=== PATIENT | male | born 1990 | race Caucasian/White ===

== ENCOUNTER → 2016-08-01 | Outpatient (CLI) | payer OTHER ==
--- NOTE | 2016-08-02 15:27 | CR ---
EXAM DATE: 08/01/16 PATIENT'S AGE: 26 Patient: DONTE MONSON Facility: [place], [place] Site . Site : 1990 Study: XRay Extremity Right tib-fib [id number]/26/[id number] 3:42:50 PM Ordering Physician: Geno Ramos Final Report: HISTORY: Fracture, fall. Technique: Two views of the right tibia and fibula. Comparison: 07/10/2016. Findings: Mildly displaced fracture of the proximal fibular shaft is again noted. The fracture demonstrates a very slightly greater degree of displacement on the lateral film as compared to the prior examination. There is some callus formation about the fracture compatible with some healing response. There is no tibial fracture. No new fracture. Impression: Proximal fibular shaft fracture with a very slightly greater degree of displacement noted on the lateral film as compared to the prior examination. Dictated by Jeremy Armenta MD @ Aug 02 2016 2:52PM (Electronic Signature) Report Signed by Proxy. BARRY
== END ==
LOC: MW.CHFP 15:26
PROVIDERS: ATTEND Family Medicine
DX: S82.839D Other fracture of upper and lower end of unspecified fibula, subsequent encounter for closed fracture with routine healing (principal); W18.2XXS Fall in (into) shower or empty bathtub, sequela; S82.401D Unspecified fracture of shaft of right fibula, subsequent encounter for closed fracture with routine healing
CPT/HCPCS: 73590-26-RT; 73590-RT

== ENCOUNTER → 2016-08-22 | Outpatient (CLI) | payer OTHER ==
--- NOTE | 2016-08-23 09:08 | CR ---
EXAMINATION: Right tibia and fibula HISTORY: Fracture COMPARISON: 08/01/2016 TECHNIQUE: 2 views FINDINGS/IMPRESSION: There is a stable healing proximal fibular fracture identified, unchanged in po sition and alignment. Remaining osseous structures and joint spaces appear normal. Bone mineralizati on is normal.
== END ==
LOC: MW.CHORTHO 07:49
PROVIDERS: ATTEND Physician Assistant
DX: S82.839D Other fracture of upper and lower end of unspecified fibula, subsequent encounter for closed fracture with routine healing (principal); S82.491D Other fracture of shaft of right fibula, subsequent encounter for closed fracture with routine healing
CPT/HCPCS: 73590-26-RT; 73590-RT

== ENCOUNTER 2020-03-05 17:17 | Observation (INO) | payer SELFPAY ==
[2020-03-05] MEDS ORDERED: Piperacillin/Tazobactam 4.5 GM in Sodium Chloride 0.9% 100 ML IV ONE (18:32)
[2020-03-05] MEDS ORDERED: Morphine 4 MG/ML Syringe IM ONE (18:32)
[2020-03-05] MEDS ORDERED: Sodium Chloride 0.9% 2.5 ML Syringe FLUSH PRN (18:32)
[2020-03-05] MEDS ORDERED: Sodium Chloride 0.9% 10 ML Syringe FLUSH PRN (18:32)
[2020-03-05] MEDS ORDERED: Lactated Ringers 1,000 ML IV ONE ×2 (18:32→18:35)
--- NOTE | 2020-03-05 18:36 | EDM.PDOC ---
<ThibodeauxJuan Francisco - Last Filed: 03/05/20 21:47> ED HPI GENERAL MEDICAL PROBLEM - General Chief Complaint: Lower Extremity Injury/Pain Stated Complaint: POSSIBLE INFECTION Time Seen by Provider: 03/05/20 18:16 R thigh Pain Score (Numeric/FACES): 10 - Related Data Allergies Allergy/AdvReac Type Severity Reaction Status Date / Time No Known Allergies Allergy Verified 03/05/20 23:46 Home Meds: Home Meds . [No Known Home Meds] 12/04/14 [History] Past Medical History Respiratory History: Reports: Other (See Below) Other Respiratory History: Pleurisy and lung infections during childhood - Infectious Disease History Infectious Disease History: Reports: Chicken Pox - Past Surgical History Respiratory Surgical History: Reports: None Social & Family History - Family History Family Medical History: No Pertinent Family History Course - Vital Signs Text/Narrative:: The patient condition did not change. The patient has some drainage from the wound above the patella. The range of motion is still adequate and passive range of motion. Cussed with Dr. Guillory and placed in observation status so that he did not have to come back in tomorrow and get an IV and another dose of IV antibiotics on Saturday. Departure - Departure Time of Disposition: 21:48 Disposition: Refer to Observation Condition: Good Clinical Impression: Prepatellar bursitis, Cellulitis, Soft tissue infection - Discharge Information Sepsis Event Note (ED) - Evaluation Sepsis Screening Result: No Definite Risk <David Cameron - Last Filed: 03/06/20 09:50> ED HPI GENERAL MEDICAL PROBLEM - History of Present Illness INITIAL COMMENTS - FREE TEXT/NARRATIVE: CHIEF COMPLAINT(S): Right knee injury HISTORY OF PRESENT ILLNESS: This is a 29-year-old man without any past medical history who comes to the emergency department with a chief complaint of a right knee injury. The patient states that approximately 4 days ago he accidentally cut the top part of his right knee with a icebox man. He states that it was deep and went into the muscle. He states that at that time he was able to move his knee and was able to ambulate on it. He states that since that time he took amoxicillin that was at his house approximately 10 tabs and 3.5 g of amoxicillin that his friend gave him. He states that he was cleaning the area with warm water Placing Neosporin and a Band-Aid on it. He states that it was doing fine and it was draining white/bloody drainage. He states that last night it started to swell and then today started to experience redness all over his knee that spread over his knee within 3 to 4 hours. He states that he again tried to clean it. He states that he now is unable to bear weight on his right knee and that he is experiencing a significant amount of pain. REVIEW OF SYSTEMS: Constitutional: Denies fever, chills. Eyes: Denies eye pain Ears, Nose, Mouth, & Throat: Denies earache Cardiovascular: Denies chest pain Respiratory: Denies shortness of breath Gastrointestinal: Denies Nausea, vomiting, diarrhea, hematochezia. Genitourinary: Denies hematuria MSK: Positive for right knee pain, swelling, redness, puncture wound Neurological: Denies blurred vision Psychiatric: Denies depression PAST MEDICAL HISTORY: As per history of present illness and as reviewed below otherwise noncontributory. SURGICAL HISTORY: As per history of present illness and as reviewed below otherwise noncontributory. SOCIAL HISTORY: Positive for tobacco and marijuana. Denies alcohol or other illicit substances FAMILY HISTORY: As per history of present illness and as reviewed below otherwise noncontributory. EXAMINATION OF ORGAN SYSTEMS/BODY AREAS: Constitutional: Blood pressure was 120/73, heart rate 70, respiratory rate 18 with an oxygen saturation 98% on room air. Temperature 36.8 General: Young man who does not appear to be in acute distress Psychiatric: Appropriate mood and affect. Eyes: No scleral icterus or conjunctival erythema ENMT: Moist mucous membranes. No pharyngeal erythema Cardiovascular: Regular, rate, and rhythm. No gallops, murmurs, or rubs. Bilateral upper extremity and lower extremity pulses are symmetric and intact. No peripheral edema. Respiratory: Lungs clear to auscultation bilaterally. No wheezes, rales, or rhonchi. Gastrointestinal: Soft, non-tender, non-distended. Normoactive bowel sounds Genitourinary: No suprapubic tenderness Musculoskeletal: Decreased range of motion of the right knee. The right knee is held in flexion. There is significant swelling of the right knee with overlying cellulitis extending around the knee. There is no crepitus. Patient is unable to bear weight. Skin: As noted above Neurological: Alert, GCS 15 distal sensation intact MEDICAL DECISION MAKING AND COURSE IN THE ED WITH INTERPRETATION/REVIEW OF DIAGNOSTIC STUDIES: This is a 29-year-old man and without any significant past medical history who comes to the emergency department with right knee swelling and what appears to be cellulitis that spread over the last 3 to 4 hours. At this time I suspect the possibility of septic arthritis versus necrotizing fasciitis versus cellulitis. We will start the patient on Zosyn and vancomycin. We will provide the patient with 1.5 L of lactated Ringer's bolus. Will obtain CBC, CMP, lactic acid, coags, CRP. Will obtain a right knee x-ray. We will provide the patient with morphine for pain relief. The radiological images were viewed by myself along with reading the report from the radiologist. Right knee x-ray reveals anterior soft tissue swelling with focal soft tissue defect. No synovitis of fracture. There is no obvious free air. At the time of signout, the patient was pending laboratory analysis and final disposition. I do believe the patient will require admission. At this time I elected not to do a knee tap as there is overlying cellulitis. We did send off blood cultures. DISPOSITION: [facility] Dr. Thibodeaux pending further workup CONDITION: Serious PROCEDURES: None FINAL IMPRESSION(S)/DIAGNOSES: 1. Acute right lower extremity cellulitis 2. Acute right knee pain, suspect possible septic arthritis David Cameron M.D. rt knee Pain Score (Numeric/FACES): 10 Review of Systems - Review of Systems Review Of Systems: See Below ED EXAM, GENERAL - Physical Exam Exam: See Below Course - Vital Signs Last Recorded V/S: Last Vital Signs Temp 36.9 C 03/06/20 07:56 Pulse 70 03/06/20 07:56 Resp 18 03/06/20 07:56 BP 109/55 L 03/06/20 07:56 Pulse Ox 95 03/06/20 07:56 - Orders/Labs/Meds Orders: Active Orders 24 hr Category Date Time Status Cardiac Monitoring [RC] . DIRECTED Care 03/05/20 18:32 Active Pulse Oximetry [RC] ASDIRECTED Care 03/05/20 18:32 Active Vaccines to be Administered [RC] PER UNIT ROUTINE Care 03/05/20 19:14 Active CULTURE BLOOD [BC] Stat Lab 03/05/20 19:23 Received CULTURE BLOOD [BC] Stat Lab 03/05/20 19:33 Results Sodium Chloride 0.9% [Saline Flush] Med 03/05/20 18:32 Active 10 ml FLUSH ASDIRECTED PRN Sodium Chloride 0.9% [Saline Flush] Med 03/05/20 18:32 Active 2.5 ml FLUSH ASDIRECTED PRN Blood Culture x2 Reflex Set [OM.PC] Stat Oth 03/05/20 19:06 Ordered Saline Lock Insert [OM.PC] Stat Oth 03/05/20 18:32 Ordered Medication Orders Acetaminophen (Tylenol) 650 mg PO Q4H PRN PRN Reason: Pain (Mild 1-3)/fever Albuterol/Ipratropium (Duoneb 3.0-0.5 Mg/3 Ml) 3 ml NEB Q4HRRT PRN PRN Reason: Shortness Of Breath/wheezing Enoxaparin Sodium (Lovenox) 40 mg SUBCUT Q24H [facility] Last Admin: 03/05/20 22:48 Dose: Not Given Documented by: PRERNA Hydromorphone HCl (Dilaudid) 1 mg IVPUSH Q4H PRN PRN Reason: Pain Last Admin: 03/06/20 07:33 Dose: 1 mg Documented by: Admin: 03/06/20 03:17 Dose: 1 mg Documented by: ALICJA Lactated Ringer's (Ringers, Lactated) 1,000 mls @ 125 mls/hr IV ASDIRECTED [facility] Last Admin: 03/06/20 00:16 Dose: 125 mls/hr Documented by: ALICJA Vancomycin HCl 1 gm/ Sodium (Chloride) 250 mls @ 166 mls/hr IV Q8H [facility] Last Admin: 03/06/20 02:23 Dose: 166 mls/hr Documented by: ALICJA Piperacillin Sod/Tazobactam (Sod 4.5 gm/ Sodium Chloride) 100 mls @ 100 mls/hr IV Q8H [facility] Last Admin: 03/06/20 04:28 Dose: 100 mls/hr Documented by: ALICJA Nicotine (Habitrol) 14 mg TRDERM DAILY [facility] Last Admin: 03/06/20 02:25 Dose: 14 mg Documented by: ALICJA Ondansetron HCl (Zofran) 4 mg IVPUSH Q4H PRN PRN Reason: Nausea/Vomiting Sodium Chloride (Saline Flush) 10 ml FLUSH ASDIRECTED PRN PRN Reason: Keep Vein Open Last Admin: 03/05/20 19:37 Dose: 10 ml Documented by: PRERNA Sodium Chloride (Saline Flush) 2.5 ml FLUSH ASDIRECTED PRN PRN Reason: Keep Vein Open Last Admin: 03/05/20 19:37 Dose: 2.5 ml Documented by: PRERNA Vancomycin HCl (Pharmacy To Dose - Vancomycin) 1 dose .XX ASDIRECTED KP Labs: Laboratory Tests 03/05/20 03/05/20 03/05/20 Range/Units 19:10 19:10 19:10 WBC 11.43 H (4.0-11.0) K/uL RBC 4.61 (4.50-5.90) M/uL Hgb 14.2 (13.0-17.0) g/dL Hct 42.4 (38.0-50.0) % MCV 92.0 (80.0-98.0) fL MCH 30.8 (27.0-32.0) pg MCHC 33.5 (31.0-37.0) g/dL RDW Std Deviation 42.0 (28.0-62.0) fl RDW Coeff of Juan 12 (11.0-15.0) % Plt Count 223 (150-400) K/uL MPV 11.20 (7.40-12.00) fL Neut % (Auto) 68.3 (48.0-80.0) % Lymph % (Auto) 20.8 (16.0-40.0) % [place] % (Auto) 10.0 (0.0-15.0) % Eos % (Auto) 0.7 (0.0-7.0) % Baso % (Auto) 0.2 (0.0-1.5) % Neut # (Auto) 7.8 H (1.4-5.7) K/uL Lymph # (Auto) 2.4 (0.6-2.4) K/uL [place] # (Auto) 1.1 H (0.0-0.8) K/uL Eos # (Auto) 0.1 (0.0-0.7) K/uL Baso # (Auto) 0.0 (0.0-0.1) K/uL Nucleated RBC % 0.0 /100WBC Nucleated RBCs # 0 K/uL INR 1.20 APTT 29.6 (18.6-31.3) SEC Lactate (0.20-2.00) mmol/L Sodium 141 (136-148) mmol/L Potassium 3.5 (3.5-5.1) mmol/L Chloride 105 (98-107) mmol/L Carbon Dioxide 27.0 (21.0-32.0) mmol/L BUN 8 (7.0-18.0) mg/dL Creatinine 0.9 (0.8-1.3) mg/dL Est Cr Clr Drug Dosing 118.26 mL/min Estimated GFR (MDRD) > 60.0 ml/min Glucose 100 (74-106) mg/dL Calcium 8.2 L (8.5-10.1) mg/dL Total Bilirubin 0.5 (0.2-1.0) mg/dL AST 13 L (15-37) IU/L ALT 24 (14-63) IU/L Alkaline Phosphatase 103 (46-116) U/L C-Reactive Protein 3.20 H (0.00-0.90) mg/dL Total Protein 7.0 (6.4-8.2) g/dL Albumin 3.7 (3.4-5.0) g/dL Globulin 3.3 (2.6-4.0) g/dL Albumin/Globulin Ratio 1.1 (0.9-1.6) SARS-CoV-2 RNA (MC) (NEGATIVE) Blood Type Antibody Screen 03/05/20 03/05/20 03/05/20 Range/Units 19:10 19:33 19:51 WBC (4.0-11.0) K/uL RBC (4.50-5.90) M/uL Hgb (13.0-17.0) g/dL Hct (38.0-50.0) % MCV (80.0-98.0) fL MCH (27.0-32.0) pg MCHC (31.0-37.0) g/dL RDW Std Deviation (28.0-62.0) fl RDW Coeff of Juan (11.0-15.0) % Plt Count (150-400) K/uL MPV (7.40-12.00) fL Neut % (Auto) (48.0-80.0) % Lymph % (Auto) (16.0-40.0) % [place] % (Auto) (0.0-15.0) % Eos % (Auto) (0.0-7.0) % Baso % (Auto) (0.0-1.5) % Neut # (Auto) (1.4-5.7) K/uL Lymph # (Auto) (0.6-2.4) K/uL [place] # (Auto) (0.0-0.8) K/uL Eos # (Auto) (0.0-0.7) K/uL Baso # (Auto) (0.0-0.1) K/uL Nucleated RBC % /100WBC Nucleated RBCs # K/uL INR APTT (18.6-31.3) SEC Lactate 2.2 H* (0.20-2.00) mmol/L Sodium (136-148) mmol/L Potassium (3.5-5.1) mmol/L Chloride (98-107) mmol/L Carbon Dioxide (21.0-32.0) mmol/L BUN (7.0-18.0) mg/dL Creatinine (0.8-1.3) mg/dL Est Cr Clr Drug Dosing mL/min Estimated GFR (MDRD) ml/min Glucose (74-106) mg/dL Calcium (8.5-10.1) mg/dL Total Bilirubin (0.2-1.0) mg/dL AST (15-37) IU/L ALT (14-63) IU/L Alkaline Phosphatase (46-116) U/L C-Reactive Protein (0.00-0.90) mg/dL Total Protein (6.4-8.2) g/dL Albumin (3.4-5.0) g/dL Globulin (2.6-4.0) g/dL Albumin/Globulin Ratio (0.9-1.6) SARS-CoV-2 RNA (MC) NEGATIVE (NEGATIVE) Blood Type O NEGATIVE Antibody Screen NEGATIVE 03/05/20 Range/Units 21:33 WBC (4.0-11.0) K/uL RBC (4.50-5.90) M/uL Hgb (13.0-17.0) g/dL Hct (38.0-50.0) % MCV (80.0-98.0) fL MCH (27.0-32.0) pg MCHC (31.0-37.0) g/dL RDW Std Deviation (28.0-62.0) fl RDW Coeff of Juan (11.0-15.0) % Plt Count (150-400) K/uL MPV (7.40-12.00) fL Neut % (Auto) (48.0-80.0) % Lymph % (Auto) (16.0-40.0) % [place] % (Auto) (0.0-15.0) % Eos % (Auto) (0.0-7.0) % Baso % (Auto) (0.0-1.5) % Neut # (Auto) (1.4-5.7) K/uL Lymph # (Auto) (0.6-2.4) K/uL [place] # (Auto) (0.0-0.8) K/uL Eos # (Auto) (0.0-0.7) K/uL Baso # (Auto) (0.0-0.1) K/uL Nucleated RBC % /100WBC Nucleated RBCs # K/uL INR APTT (18.6-31.3) SEC Lactate 1.2 (0.20-2.00) mmol/L Sodium (136-148) mmol/L Potassium (3.5-5.1) mmol/L Chloride (98-107) mmol/L Carbon Dioxide (21.0-32.0) mmol/L BUN (7.0-18.0) mg/dL Creatinine (0.8-1.3) mg/dL Est Cr Clr Drug Dosing mL/min Estimated GFR (MDRD) ml/min Glucose (74-106) mg/dL Calcium (8.5-10.1) mg/dL Total Bilirubin (0.2-1.0) mg/dL AST (15-37) IU/L ALT (14-63) IU/L Alkaline Phosphatase (46-116) U/L C-Reactive Protein (0.00-0.90) mg/dL Total Protein (6.4-8.2) g/dL Albumin (3.4-5.0) g/dL Globulin (2.6-4.0) g/dL Albumin/Globulin Ratio (0.9-1.6) SARS-CoV-2 RNA (MC) (NEGATIVE) Blood Type Antibody Screen Meds: Medications Generic Name Dose Route Start Last Admin Trade Name Freq PRN Reason Stop Dose Admin Acetaminophen 650 mg 03/05/20 22:08 Tylenol PO Q4H PRN Pain (Mild 1-3)/fever Albuterol/Ipratropium 3 ml 03/05/20 22:08 Duoneb 3.0-0.5 Mg/3 Ml NEB Q4HRRT PRN Shortness Of Breath/wheezing Enoxaparin Sodium 40 mg 03/05/20 22:15 03/05/20 22:48 Lovenox SUBCUT Not Given Q24H KP Hydromorphone HCl 1 mg 03/06/20 01:46 03/06/20 07:33 Dilaudid IVPUSH 1 mg Q4H PRN Administration Pain Lactated Ringer's 1,000 mls @ 125 mls/hr 03/05/20 22:15 03/06/20 00:16 Ringers, Lactated IV 125 mls/hr ASDIRECTED KP Administration Vancomycin HCl 1 gm/ Sodium 250 mls @ 166 mls/hr 03/06/20 03:00 03/06/20 02:23 Chloride IV 166 mls/hr Q8H KP Administration Piperacillin Sod/Tazobactam 100 mls @ 100 mls/hr 03/06/20 04:00 03/06/20 04:28 Sod 4.5 gm/ Sodium Chloride IV 100 mls/hr Q8H KP Administration Nicotine 14 mg 03/06/20 02:00 03/06/20 02:25 Habitrol TRDERM 14 mg DAILY KP Administration Ondansetron HCl 4 mg 03/05/20 22:08 Zofran IVPUSH Q4H PRN Nausea/Vomiting Sodium Chloride 10 ml 03/05/20 18:32 03/05/20 19:37 Saline Flush FLUSH 10 ml ASDIRECTED PRN Administration Keep Vein Open Sodium Chloride 2.5 ml 03/05/20 18:32 03/05/20 19:37 Saline Flush FLUSH 2.5 ml ASDIRECTED PRN Administration Keep Vein Open Vancomycin HCl 1 dose 03/05/20 22:45 Pharmacy To Dose - Vancomycin .XX ASDIRECTED KP Discontinued Medications Generic Name Dose Route Start Last Admin Trade Name Geovany PRN Reason Stop Dose Admin Hydrocodone Bitart/Acetaminophen 1 tab 03/05/20 21:42 03/05/20 21:47 [place] 325-10 Mg PO 03/05/20 21:43 1 tab ONETIME ONE Administration Diphtheria/Tetanus/Acell Pertussis 0.5 ml 03/05/20 19:13 03/05/20 19:35 Boostrix IM 03/05/20 19:14 0.5 ml .ONCE ONE Administration Diphtheria/Tetanus/Acell Pertussis Confirm 03/05/20 19:33 03/05/20 21:26 Adacel Administered 03/05/20 19:34 Not Given Dose 0.5 ml .ROUTE .STK-MED ONE Lactated Ringer's 1,000 mls @ 999 mls/hr 03/05/20 18:32 03/05/20 19:18 Ringers, Lactated IV 03/05/20 19:32 999 mls/hr .BOLUS ONE Administration Vancomycin HCl 1,500 mg/ 100 mls @ 100 mls/hr 03/05/20 18:32 03/05/20 19:34 Sodium Chloride IV 03/05/20 19:31 100 mls/hr ONETIME ONE Administration Piperacillin Sod/Tazobactam 100 mls @ 100 mls/hr 03/05/20 18:32 03/05/20 19:18 Sod 4.5 gm/ Sodium Chloride IV 03/05/20 19:31 100 mls/hr ONETIME ONE Administration Lactated Ringer's 1,000 mls @ 500 mls/hr 03/05/20 18:35 03/05/20 19:37 Ringers, Lactated IV 03/05/20 20:34 500 mls/hr .BOLUS ONE Administration Piperacillin Sod/Tazobactam 100 mls @ 100 mls/hr 03/06/20 03:00 Sod 4.5 gm/ Sodium Chloride IV Q8H [facility] Morphine Sulfate 4 mg 03/05/20 18:32 03/05/20 19:16 Morphine IM 03/05/20 18:33 4 mg ONETIME ONE Administration Morphine Sulfate 2 mg 03/05/20 22:08 03/06/20 00:11 Morphine IVPUSH 03/06/20 22:13 2 mg Q4H PRN Administration Pain (severe 7-10) - My Orders Last 24 Hours: My Active Orders 03/05/20 18:32 Cardiac Monitoring [RC] . DIRECTED Pulse Oximetry [RC] ASDIRECTED Sodium Chloride 0.9% [Saline Flush] 10 ml FLUSH ASDIRECTED PRN Sodium Chloride 0.9% [Saline Flush] 2.5 ml FLUSH ASDIRECTED PRN Saline Lock Insert [OM.PC] Stat 03/05/20 19:14 Vaccines to be Administered [RC] PER UNIT ROUTINE - Assessment/Plan Last 24 Hours: My Active Orders 03/05/20 18:32 Cardiac Monitoring [RC] . DIRECTED Pulse Oximetry [RC] ASDIRECTED Sodium Chloride 0.9% [Saline Flush] 10 ml FLUSH ASDIRECTED PRN Sodium Chloride 0.9% [Saline Flush] 2.5 ml FLUSH ASDIRECTED PRN Saline Lock Insert [OM.PC] Stat 03/05/20 19:14 Vaccines to be Administered [RC] PER UNIT ROUTINE
--- NOTE | 2020-03-05 19:11 | CR ---
Indication: Pt w/rt knee infection and injury Technique: Right knee 3 views Comparison: None Findings: Soft tissue swelling is present anterior to the quadriceps tendon and patella. Focal soft tissue defect on the lateral view above the patella. No large joint effusion or fracture. Alignment. Joint spaces maintained. Impression: Anterior soft tissue swelling with focal soft tissue defect. No synovitis or fracture. Dictated by Jayson Coon MD @ Mar 05 2020 7:10PM Signed by Dr. Jayson Coon @ Mar 05 2020 7:11PM
[2020-03-05] MEDS ORDERED: Diphtheria,Pertussis(Acell),Tetanus Vaccine 0.5 ML Syringe IM ONE (19:13)
[2020-03-05] MEDS ORDERED: Diphtheria,Pertussis(Acell),Tetanus Vaccine 0.5 ML Syringe ONE (19:33)
[2020-03-05 19:39] LABS: BLOOD UREA NITROGEN,BUN 8 mg/dL (7.0-18.0); CHLORIDE,CL 105 mmol/L (98-107); GLUCOSE RANDOM 100 mg/dL (74-106); POTASSIUM,K 3.5 mmol/L (3.5-5.1); SODIUM,NA 141 mmol/L (136-148)
[2020-03-05] MEDS ORDERED: Acetaminophen/HYDROcodone 325-10 MG Tab PO ONE (21:42)
[2020-03-05] MEDS ORDERED: Albuterol/Ipratropium 3.0-0.5 MG/3 ML Neb Soln NEB PRN (22:08)
[2020-03-05] MEDS ORDERED: Ondansetron 4 MG/2 ML SDV IVPUSH PRN (22:08)
[2020-03-05] MEDS ORDERED: Acetaminophen 325 MG Tab PO PRN (22:08)
[2020-03-05] MEDS ORDERED: Morphine 10 MG/ML Syringe IVPUSH PRN (22:08)
[2020-03-05] MEDS: Enoxaparin 40 MG/0.4 ML Syringe SUBCUT SCH (22:48)
--- NOTE | 2020-03-05 22:49 | PCM.HP.2 ---
H&P History of Present Illness - General Date of Service: 03/06/20 Admit Problem/Dx: Admission Diagnosis/Problem Admission Diagnosis/Problem Cellulitis - History of Present Illness Initial Comments - Free Text/Narative: Patient is a 29-year-old man without any significant past medical history who comes to the emergency department with a chief complaint of a right knee injury. According to him, approximately 4 days ago he accidentally cut the top part of his right knee with a telephone coin box collector while he was trying to cut a rope too close to his knee. He states that it was deep and went into the muscle, he put some "glue" on it and Neosporin and a bandaged it, . He states that at that time he was able to move his knee and was able to ambulate on it. He states that since that time he took amoxicillin that was at his house approximately 10 tabs , 500 mg, he took it without prescription, and eventually ran out of it, he opened the dressing today to "dry the wound" and pressed it to get the serous fluid out, states he saw some "bubbling air" coming out as well. Since then he pain and swelling has gotten worse, redness all over his knee that spread over his knee within 3 to 4 hours and now is unable to bear weight on his right knee and that he is experiencing a significant amount of pain. CXR knee was done in ER, showed anterior soft tissue swelling, no air, abscess or osteomyelitis. Patients lactate was elevated, received IV fluids and IV antibiotics, f/u lactate resolved, and was admitted for father management. R thigh Pain Score (Numeric/FACES): 10 rt knee Pain Score (Numeric/FACES): 10 - Related Data Allergies/Adverse Reactions: Allergies Allergy/AdvReac Type Severity Reaction Status Date / Time No Known Allergies Allergy Verified 03/05/20 23:46 Home Medications: Home Meds . [No Known Home Meds] 12/04/14 [History] Past Medical History Respiratory History: Reports: Other (See Below) Other Respiratory History: Pleurisy and lung infections during childhood - Infectious Disease History Infectious Disease History: Reports: Chicken Pox - Past Surgical History Respiratory Surgical History: Reports: None Social & Family History - Family History Family Medical History: No Pertinent Family History - Tobacco Use Tobacco Use Status *Q: Current Every Day Tobacco User Years of Tobacco use: 20 Packs/Tins Daily: 1 - Caffeine Use Caffeine Use: Reports: None - Recreational Drug Use Recreational Drug Use: Yes Recreational Drug Type: Reports: Marijuana/Hashish Recreational Drug Use Frequency: Socially H&P Review of Systems - Review of Systems: Review Of Systems: See Below General: Denies: Fever, Malaise HEENT: Denies: Dysphasia, Ear Pain Pulmonary: Denies: Shortness of Breath, Wheezing Cardiovascular: Denies: Chest Pain, Palpitations, Dyspnea on Exertion Gastrointestinal: Denies: Abdominal Pain, Anorexia, Black Stool, Constipation, Diarrhea, Melena, Nausea Genitourinary: Denies: Dysuria, Frequency, Burning Musculoskeletal: Reports: Leg Pain, Joint Pain, Joint Swelling. Denies: Neck Pain, Shoulder Pain, Back Pain, Muscle Pain Skin: Reports: Erythema, Wound. Denies: Cyanosis, Jaundice, Mottled Psychiatric: Denies: Confusion, Depression, Mood Lability Neurological: Denies: Confusion, Dizziness, Headache Exam - Exam Exam: See Below - Vital Signs Vital Signs: Last Vital Signs Temp 36.4 C 03/05/20 21:38 Pulse 65 03/05/20 21:38 Resp 18 03/05/20 21:38 BP 111/76 03/05/20 21:38 Pulse Ox 95 03/05/20 21:38 Weight: 70.307 kg - Exam Quality Assessment: No: Supplemental Oxygen General: Alert, Oriented, Cooperative, Mild Distress Neck: Supple, Trachea Midline Lungs: Clear to Auscultation, Normal Respiratory Effort Cardiovascular: Regular Rate, Regular Rhythm, Normal S1, Normal S2 Extremities: Joint Swelling, Leg Pain, Limited Range of Motion, Redness - Patient Data Lab Results Last 24 hrs: Laboratory Results - last 24 hr 03/05/20 03/05/20 03/05/20 Range/Units 19:10 19:10 19:10 WBC 11.43 H (4.0-11.0) K/uL RBC 4.61 (4.50-5.90) M/uL Hgb 14.2 (13.0-17.0) g/dL Hct 42.4 (38.0-50.0) % MCV 92.0 (80.0-98.0) fL MCH 30.8 (27.0-32.0) pg MCHC 33.5 (31.0-37.0) g/dL RDW Std Deviation 42.0 (28.0-62.0) fl RDW Coeff of Juan 12 (11.0-15.0) % Plt Count 223 (150-400) K/uL MPV 11.20 (7.40-12.00) fL Neut % (Auto) 68.3 (48.0-80.0) % Lymph % (Auto) 20.8 (16.0-40.0) % [place] % (Auto) 10.0 (0.0-15.0) % Eos % (Auto) 0.7 (0.0-7.0) % Baso % (Auto) 0.2 (0.0-1.5) % Neut # (Auto) 7.8 H (1.4-5.7) K/uL Lymph # (Auto) 2.4 (0.6-2.4) K/uL [place] # (Auto) 1.1 H (0.0-0.8) K/uL Eos # (Auto) 0.1 (0.0-0.7) K/uL Baso # (Auto) 0.0 (0.0-0.1) K/uL Nucleated RBC % 0.0 /100WBC Nucleated RBCs # 0 K/uL INR 1.20 APTT 29.6 (18.6-31.3) SEC Lactate (0.20-2.00) mmol/L Sodium 141 (136-148) mmol/L Potassium 3.5 (3.5-5.1) mmol/L Chloride 105 (98-107) mmol/L Carbon Dioxide 27.0 (21.0-32.0) mmol/L BUN 8 (7.0-18.0) mg/dL Creatinine 0.9 (0.8-1.3) mg/dL Est Cr Clr Drug Dosing 118.26 mL/min Estimated GFR (MDRD) > 60.0 ml/min Glucose 100 (74-106) mg/dL Calcium 8.2 L (8.5-10.1) mg/dL Total Bilirubin 0.5 (0.2-1.0) mg/dL AST 13 L (15-37) IU/L ALT 24 (14-63) IU/L Alkaline Phosphatase 103 (46-116) U/L C-Reactive Protein 3.20 H (0.00-0.90) mg/dL Total Protein 7.0 (6.4-8.2) g/dL Albumin 3.7 (3.4-5.0) g/dL Globulin 3.3 (2.6-4.0) g/dL Albumin/Globulin Ratio 1.1 (0.9-1.6) SARS-CoV-2 RNA ([facility]) (NEGATIVE) Blood Type Antibody Screen 03/05/20 03/05/20 03/05/20 Range/Units 19:10 19:33 19:51 WBC (4.0-11.0) K/uL RBC (4.50-5.90) M/uL Hgb (13.0-17.0) g/dL Hct (38.0-50.0) % MCV (80.0-98.0) fL MCH (27.0-32.0) pg MCHC (31.0-37.0) g/dL RDW Std Deviation (28.0-62.0) fl RDW Coeff of Juan (11.0-15.0) % Plt Count (150-400) K/uL MPV (7.40-12.00) fL Neut % (Auto) (48.0-80.0) % Lymph % (Auto) (16.0-40.0) % [place] % (Auto) (0.0-15.0) % Eos % (Auto) (0.0-7.0) % Baso % (Auto) (0.0-1.5) % Neut # (Auto) (1.4-5.7) K/uL Lymph # (Auto) (0.6-2.4) K/uL [place] # (Auto) (0.0-0.8) K/uL Eos # (Auto) (0.0-0.7) K/uL Baso # (Auto) (0.0-0.1) K/uL Nucleated RBC % /100WBC Nucleated RBCs # K/uL INR APTT (18.6-31.3) SEC Lactate 2.2 H* (0.20-2.00) mmol/L Sodium (136-148) mmol/L Potassium (3.5-5.1) mmol/L Chloride (98-107) mmol/L Carbon Dioxide (21.0-32.0) mmol/L BUN (7.0-18.0) mg/dL Creatinine (0.8-1.3) mg/dL Est Cr Clr Drug Dosing mL/min Estimated GFR (MDRD) ml/min Glucose (74-106) mg/dL Calcium (8.5-10.1) mg/dL Total Bilirubin (0.2-1.0) mg/dL AST (15-37) IU/L ALT (14-63) IU/L Alkaline Phosphatase (46-116) U/L C-Reactive Protein (0.00-0.90) mg/dL Total Protein (6.4-8.2) g/dL Albumin (3.4-5.0) g/dL Globulin (2.6-4.0) g/dL Albumin/Globulin Ratio (0.9-1.6) SARS-CoV-2 RNA ([facility]) NEGATIVE (NEGATIVE) Blood Type O NEGATIVE Antibody Screen NEGATIVE 03/05/20 Range/Units 21:33 WBC (4.0-11.0) K/uL RBC (4.50-5.90) M/uL Hgb (13.0-17.0) g/dL Hct (38.0-50.0) % MCV (80.0-98.0) fL MCH (27.0-32.0) pg MCHC (31.0-37.0) g/dL RDW Std Deviation (28.0-62.0) fl RDW Coeff of Juan (11.0-15.0) % Plt Count (150-400) K/uL MPV (7.40-12.00) fL Neut % (Auto) (48.0-80.0) % Lymph % (Auto) (16.0-40.0) % [place] % (Auto) (0.0-15.0) % Eos % (Auto) (0.0-7.0) % Baso % (Auto) (0.0-1.5) % Neut # (Auto) (1.4-5.7) K/uL Lymph # (Auto) (0.6-2.4) K/uL [place] # (Auto) (0.0-0.8) K/uL Eos # (Auto) (0.0-0.7) K/uL Baso # (Auto) (0.0-0.1) K/uL Nucleated RBC % /100WBC Nucleated RBCs # K/uL INR APTT (18.6-31.3) SEC Lactate 1.2 (0.20-2.00) mmol/L Sodium (136-148) mmol/L Potassium (3.5-5.1) mmol/L Chloride (98-107) mmol/L Carbon Dioxide (21.0-32.0) mmol/L BUN (7.0-18.0) mg/dL Creatinine (0.8-1.3) mg/dL Est Cr Clr Drug Dosing mL/min Estimated GFR (MDRD) ml/min Glucose (74-106) mg/dL Calcium (8.5-10.1) mg/dL Total Bilirubin (0.2-1.0) mg/dL AST (15-37) IU/L ALT (14-63) IU/L Alkaline Phosphatase (46-116) U/L C-Reactive Protein (0.00-0.90) mg/dL Total Protein (6.4-8.2) g/dL Albumin (3.4-5.0) g/dL Globulin (2.6-4.0) g/dL Albumin/Globulin Ratio (0.9-1.6) SARS-CoV-2 RNA ([facility]) (NEGATIVE) Blood Type Antibody Screen Result Diagrams: 03/05/20 19:10 03/05/20 19:10 Yazan Results Last 24 hrs: Microbiology 03/05/20 19:33 Anaerobic Blood Culture - Final Blood - Venous - Lab Draw Sepsis Event Note - Evaluation Sepsis Screening Result: No Definite Risk - Focused Exam Vital Signs: Vital Signs Temp Pulse Resp BP Pulse Ox 03/05/20 21:38 36.4 C 65 18 111/76 95 03/05/20 19:48 36.8 C 73 18 117/63 96 03/05/20 18:11 36.8 C 70 18 120/73 98 - Problem List (1) Cellulitis SNOMED Code(s): 342267314 ICD Code: L03.90 - CELLULITIS, UNSPECIFIED Status: Acute Current Visit: Y es (2) Prepatellar bursitis SNOMED Code(s): 58386084 ICD Code: M70.40 - PREPATELLAR BURSITIS, UNSPECIFIED KNEE Status: Acute Current Visit: Yes (3) Soft tissue infection SNOMED Code(s): 87981874 ICD Code: L08.9 - LOCAL INFECTION OF THE SKIN AND SUBCUTANEOUS TISSUE, UNSP Status: Acute Current Visit: Yes Problem List Initiated/Reviewed/Updated: Yes Orders Last 24hrs: Active Orders 24 hr Category Date Time Status Admission Status [Patient Status] [ADT] Stat ADT 03/05/20 21:49 Active Ambulate [RC] ASDIRECTED Care 03/05/20 22:08 Ordered Antiembolic Devices [RC] PER UNIT ROUTINE Care 03/05/20 22:13 Ordered Cardiac Monitoring [RC] . DIRECTED Care 03/05/20 18:32 Active Oxygen Therapy [RC] PRN Care 03/05/20 22:08 Ordered Pulse Oximetry [RC] ASDIRECTED Care 03/05/20 18:32 Active RT Aerosol Therapy [RC] ASDIRECTED Care 03/05/20 22:26 Ordered VTE/DVT Education [RC] PER UNIT ROUTINE Care 03/05/20 22:08 Ordered Vaccines to be Administered [RC] PER UNIT ROUTINE Care 03/05/20 19:14 Active Vital Signs [RC] Q4H Care 03/05/20 22:08 Ordered Regular Diet [DIET] Diet 03/06/20 Breakfast Ordered CULTURE BLOOD [BC] Stat Lab 03/05/20 19:23 Received CULTURE BLOOD [BC] Stat Lab 03/05/20 19:33 Results CULTURE WOUND [RM] Stat Lab 03/05/20 22:36 Ordered VANCOMYCIN TROUGH [CHEM] Timed Lab 03/07/20 02:00 Ordered Acetaminophen [TylenoL] Med 03/05/20 22:08 Ordered 650 mg PO Q4H PRN Albuterol/Ipratropium [DuoNeb 3.0-0.5 MG/3 ML] Med 03/05/20 22:08 Ordered 3 ml NEB Q4HRRT PRN Enoxaparin [Lovenox] Med 03/05/20 22:15 Ordered 40 mg SUBCUT Q24H Lactated Ringers @ 125 MLS/HR(1000ml) Med 03/05/20 22:15 Ordered Lactated Ringers [Ringers, Lactated] 1,000 ml IV ASDIRECTED Morphine Med 03/05/20 22:08 Ordered 2 mg IVPUSH Q4H PRN Ondansetron [Zofran] Med 03/05/20 22:08 Ordered 4 mg IVPUSH Q4H PRN Pharmacy to Dose - Vancomycin Med 03/05/20 22:45 Ordered 1 dose .XX ASDIRECTED Piperacillin/Tazobactam [Piperacil-Tazobact] 4.5 gm Med 03/06/20 03:00 Ordered Sodium Chloride 0.9% [Normal Saline] 100 ml IV Q8H Sodium Chloride 0.9% [Saline Flush] Med 03/05/20 18:32 Active 10 ml FLUSH ASDIRECTED PRN Sodium Chloride 0.9% [Saline Flush] Med 03/05/20 18:32 Active 2.5 ml FLUSH ASDIRECTED PRN Vancomycin [Vancocin] 1 gm Med 03/06/20 03:00 Active Sodium Chloride 0.9% [Normal Saline (AdvBag)] 250 ml IV Q8H Blood Culture x2 Reflex Set [OM.PC] Stat Oth 03/05/20 19:06 Ordered Saline Lock Insert [OM.PC] Stat Oth 03/05/20 18:32 Ordered Sequential Compression Device [OM.PC] Per Unit Routine Oth 03/05/20 22:10 Ordered Resuscitation Status Routine Resus Stat 03/05/20 22:08 Ordered Medication Orders Acetaminophen (Tylenol) 650 mg PO Q4H PRN PRN Reason: Pain (Mild 1-3)/fever Albuterol/Ipratropium (Duoneb 3.0-0.5 Mg/3 Ml) 3 ml NEB Q4HRRT PRN PRN Reason: Shortness Of Breath/wheezing Enoxaparin Sodium (Lovenox) 40 mg SUBCUT Q24H KP Lactated Ringer's (Ringers, Lactated) 1,000 mls @ 125 mls/hr IV ASDIRECTED KP Piperacillin Sod/Tazobactam (Sod 4.5 gm/ Sodium Chloride) 100 mls @ 100 mls/hr IV Q8H KP Vancomycin HCl 1 gm/ Sodium (Chloride) 250 mls @ 166 mls/hr IV Q8H KP Morphine Sulfate (Morphine) 2 mg IVPUSH Q4H PRN PRN Reason: Pain (severe 7-10) Stop: 03/06/20 22:13 Ondansetron HCl (Zofran) 4 mg IVPUSH Q4H PRN PRN Reason: Nausea/Vomiting Sodium Chloride (Saline Flush) 10 ml FLUSH ASDIRECTED PRN PRN Reason: Keep Vein Open Last Admin: 03/05/20 19:37 Dose: 10 ml Documented by: PRERNA Sodium Chloride (Saline Flush) 2.5 ml FLUSH ASDIRECTED PRN PRN Reason: Keep Vein Open Last Admin: 03/05/20 19:37 Dose: 2.5 ml Documented by: PRERNA Vancomycin HCl (Pharmacy To Dose - Vancomycin) 1 dose .XX ASDIRECTED [facility] Assessment/Plan Comment:: 29 y/o M admitted for cellulitis of his right leg sec to wound CXR showed soft tissue selling, no air or abscess, no fluid collection, No fever, patient doesn't look toxic Pain is slightly better, redness has started to improve per patient start board spectrum antibiotics f/u on blood cultures send wound cultures check HbA1c Morphine for pain If pain gets worse will or minimal improvement will obtain CT of the knee
[2020-03-06] MEDS: Lactated Ringers 1,000 ML IV SCH ×2 (00:16→14:31)
[2020-03-06] MEDS: Nicotine 14 MG/24 Hr Patch TRDERM SCH ×2 (02:25→10:07)
[2020-03-06] MEDS ORDERED: Piperacillin/Tazobactam 4.5 GM in Sodium Chloride 0.9% 100 ML IV SCH (03:00)
[2020-03-06] MEDS: HYDROmorphone 1 MG/ML Syringe IVPUSH PRN ×5 (03:17→19:34)
[2020-03-06] MEDS: Piperacillin/Tazobactam 4.5 GM in Sodium Chloride 0.9% 100 ML IV SCH ×3 (04:28→21:58)
[2020-03-06 06:14] LABS: HEMOGLOBIN A1C 5.2 %
[2020-03-06 06:28] LABS: BLOOD UREA NITROGEN,BUN 8 mg/dL (7.0-18.0); CHLORIDE,CL 108 mmol/L (98-107); GLUCOSE RANDOM 111 mg/dL (74-106); POTASSIUM,K 3.9 mmol/L (3.5-5.1); SODIUM,NA 142 mmol/L (136-148)
--- NOTE | 2020-03-06 13:35 | PCM.PN ---
- General Info Date of Service: 03/06/20 Admission Dx/Problem (Free Text): Admission Diagnosis/Problem Admission Diagnosis/Problem Cellulitis Subjective Update: seen at bedside, pain and swelling has Improved, able to flex his knee more than yesterday - Review of Systems General: Denies: Fever, Weakness, Fatigue Pulmonary: Denies: Shortness of Breath, Pleuritic Chest Pain Cardiovascular: Denies: Chest Pain, Palpitations, Dyspnea on Exertion Gastrointestinal: Denies: Abdominal Pain, Constipation, Decreased Appetite Genitourinary: Denies: Dysuria, Frequency, Burning Musculoskeletal: Reports: Leg Pain, Joint Pain, Joint Swelling. Denies: Neck Pain, Shoulder Pain, Back Pain Skin: Reports: Other (wound, erythema). Denies: Cyanosis, Jaundice, Mottled - Patient Data Vitals - Most Recent: Last Vital Signs Temp 36.8 C 03/06/20 12:00 Pulse 65 03/06/20 12:00 Resp 14 03/06/20 12:00 BP 116/69 03/06/20 12:00 Pulse Ox 94 L 03/06/20 12:00 Weight - Most Recent: 70.76 kg I&O - Last 24 Hours: Intake & Output 03/05/20 03/06/20 03/06/20 22:59 06:59 14:59 Intake Total 1239 350 Output Total 450 Balance 789 350 Lab Results Last 24 Hours: Laboratory Results - last 24 hr 03/05/20 03/05/20 03/05/20 Range/Units 19:10 19:10 19:10 WBC 11.43 H (4.0-11.0) K/uL RBC 4.61 (4.50-5.90) M/uL Hgb 14.2 (13.0-17.0) g/dL Hct 42.4 (38.0-50.0) % MCV 92.0 (80.0-98.0) fL MCH 30.8 (27.0-32.0) pg MCHC 33.5 (31.0-37.0) g/dL RDW Std Deviation 42.0 (28.0-62.0) fl RDW Coeff of Juan 12 (11.0-15.0) % Plt Count 223 (150-400) K/uL MPV 11.20 (7.40-12.00) fL Neut % (Auto) 68.3 (48.0-80.0) % Lymph % (Auto) 20.8 (16.0-40.0) % [place] % (Auto) 10.0 (0.0-15.0) % Eos % (Auto) 0.7 (0.0-7.0) % Baso % (Auto) 0.2 (0.0-1.5) % Neut # (Auto) 7.8 H (1.4-5.7) K/uL Lymph # (Auto) 2.4 (0.6-2.4) K/uL [place] # (Auto) 1.1 H (0.0-0.8) K/uL Eos # (Auto) 0.1 (0.0-0.7) K/uL Baso # (Auto) 0.0 (0.0-0.1) K/uL Nucleated RBC % 0.0 /100WBC Nucleated RBCs # 0 K/uL INR 1.20 APTT 29.6 (18.6-31.3) SEC Lactate (0.20-2.00) mmol/L Sodium 141 (136-148) mmol/L Potassium 3.5 (3.5-5.1) mmol/L Chloride 105 (98-107) mmol/L Carbon Dioxide 27.0 (21.0-32.0) mmol/L BUN 8 (7.0-18.0) mg/dL Creatinine 0.9 (0.8-1.3) mg/dL Est Cr Clr Drug Dosing 118.26 mL/min Estimated GFR (MDRD) > 60.0 ml/min Glucose 100 (74-106) mg/dL Hemoglobin A1c (4.5 - 6.2) % Calcium 8.2 L (8.5-10.1) mg/dL Phosphorus (2.6-4.7) mg/dL Magnesium (1.8-2.4) mg/dL Total Bilirubin 0.5 (0.2-1.0) mg/dL AST 13 L (15-37) IU/L ALT 24 (14-63) IU/L Alkaline Phosphatase 103 (46-116) U/L C-Reactive Protein 3.20 H (0.00-0.90) mg/dL Total Protein 7.0 (6.4-8.2) g/dL Albumin 3.7 (3.4-5.0) g/dL Globulin 3.3 (2.6-4.0) g/dL Albumin/Globulin Ratio 1.1 (0.9-1.6) SARS-CoV-2 RNA ([facility]) (NEGATIVE) Blood Type Antibody Screen 03/05/20 03/05/20 03/05/20 Range/Units 19:10 19:33 19:51 WBC (4.0-11.0) K/uL RBC (4.50-5.90) M/uL Hgb (13.0-17.0) g/dL Hct (38.0-50.0) % MCV (80.0-98.0) fL MCH (27.0-32.0) pg MCHC (31.0-37.0) g/dL RDW Std Deviation (28.0-62.0) fl RDW Coeff of Juan (11.0-15.0) % Plt Count (150-400) K/uL MPV (7.40-12.00) fL Neut % (Auto) (48.0-80.0) % Lymph % (Auto) (16.0-40.0) % [place] % (Auto) (0.0-15.0) % Eos % (Auto) (0.0-7.0) % Baso % (Auto) (0.0-1.5) % Neut # (Auto) (1.4-5.7) K/uL Lymph # (Auto) (0.6-2.4) K/uL [place] # (Auto) (0.0-0.8) K/uL Eos # (Auto) (0.0-0.7) K/uL Baso # (Auto) (0.0-0.1) K/uL Nucleated RBC % /100WBC Nucleated RBCs # K/uL INR APTT (18.6-31.3) SEC Lactate 2.2 H* (0.20-2.00) mmol/L Sodium (136-148) mmol/L Potassium (3.5-5.1) mmol/L Chloride (98-107) mmol/L Carbon Dioxide (21.0-32.0) mmol/L BUN (7.0-18.0) mg/dL Creatinine (0.8-1.3) mg/dL Est Cr Clr Drug Dosing mL/min Estimated GFR (MDRD) ml/min Glucose (74-106) mg/dL Hemoglobin A1c (4.5 - 6.2) % Calcium (8.5-10.1) mg/dL Phosphorus (2.6-4.7) mg/dL Magnesium (1.8-2.4) mg/dL Total Bilirubin (0.2-1.0) mg/dL AST (15-37) IU/L ALT (14-63) IU/L Alkaline Phosphatase (46-116) U/L C-Reactive Protein (0.00-0.90) mg/dL Total Protein (6.4-8.2) g/dL Albumin (3.4-5.0) g/dL Globulin (2.6-4.0) g/dL Albumin/Globulin Ratio (0.9-1.6) SARS-CoV-2 RNA ([facility]) NEGATIVE (NEGATIVE) Blood Type O NEGATIVE Antibody Screen NEGATIVE 03/05/20 03/06/20 03/06/20 Range/Units 21:33 05:55 05:55 WBC 7.94 (4.0-11.0) K/uL RBC 3.97 L (4.50-5.90) M/uL Hgb 12.2 L (13.0-17.0) g/dL Hct 36.9 L (38.0-50.0) % MCV 92.9 (80.0-98.0) fL MCH 30.7 (27.0-32.0) pg MCHC 33.1 (31.0-37.0) g/dL RDW Std Deviation 42.3 (28.0-62.0) fl RDW Coeff of Juan 13 (11.0-15.0) % Plt Count 198 (150-400) K/uL MPV 11.10 (7.40-12.00) fL Neut % (Auto) 51.6 (48.0-80.0) % Lymph % (Auto) 35.0 (16.0-40.0) % [place] % (Auto) 11.1 (0.0-15.0) % Eos % (Auto) 2.0 (0.0-7.0) % Baso % (Auto) 0.3 (0.0-1.5) % Neut # (Auto) 4.1 (1.4-5.7) K/uL Lymph # (Auto) 2.8 H (0.6-2.4) K/uL [place] # (Auto) 0.9 H (0.0-0.8) K/uL Eos # (Auto) 0.2 (0.0-0.7) K/uL Baso # (Auto) 0.0 (0.0-0.1) K/uL Nucleated RBC % 0.0 /100WBC Nucleated RBCs # 0 K/uL INR APTT (18.6-31.3) SEC Lactate 1.2 (0.20-2.00) mmol/L Sodium 142 (136-148) mmol/L Potassium 3.9 (3.5-5.1) mmol/L Chloride 108 H (98-107) mmol/L Carbon Dioxide 29.0 (21.0-32.0) mmol/L BUN 8 (7.0-18.0) mg/dL Creatinine 0.9 (0.8-1.3) mg/dL Est Cr Clr Drug Dosing 119.03 mL/min Estimated GFR (MDRD) > 60.0 ml/min Glucose 111 H (74-106) mg/dL Hemoglobin A1c (4.5 - 6.2) % Calcium 8.0 L (8.5-10.1) mg/dL Phosphorus 3.7 (2.6-4.7) mg/dL Magnesium 1.8 (1.8-2.4) mg/dL Total Bilirubin (0.2-1.0) mg/dL AST (15-37) IU/L ALT (14-63) IU/L Alkaline Phosphatase (46-116) U/L C-Reactive Protein 5.20 H (0.00-0.90) mg/dL Total Protein (6.4-8.2) g/dL Albumin (3.4-5.0) g/dL Globulin (2.6-4.0) g/dL Albumin/Globulin Ratio (0.9-1.6) SARS-CoV-2 RNA ([facility]) (NEGATIVE) Blood Type Antibody Screen 03/06/20 Range/Units 05:55 WBC (4.0-11.0) K/uL RBC (4.50-5.90) M/uL Hgb (13.0-17.0) g/dL Hct (38.0-50.0) % MCV (80.0-98.0) fL MCH (27.0-32.0) pg MCHC (31.0-37.0) g/dL RDW Std Deviation (28.0-62.0) fl RDW Coeff of Juan (11.0-15.0) % Plt Count (150-400) K/uL MPV (7.40-12.00) fL Neut % (Auto) (48.0-80.0) % Lymph % (Auto) (16.0-40.0) % [place] % (Auto) (0.0-15.0) % Eos % (Auto) (0.0-7.0) % Baso % (Auto) (0.0-1.5) % Neut # (Auto) (1.4-5.7) K/uL Lymph # (Auto) (0.6-2.4) K/uL [place] # (Auto) (0.0-0.8) K/uL Eos # (Auto) (0.0-0.7) K/uL Baso # (Auto) (0.0-0.1) K/uL Nucleated RBC % /100WBC Nucleated RBCs # K/uL INR APTT (18.6-31.3) SEC Lactate (0.20-2.00) mmol/L Sodium (136-148) mmol/L Potassium (3.5-5.1) mmol/L Chloride (98-107) mmol/L Carbon Dioxide (21.0-32.0) mmol/L BUN (7.0-18.0) mg/dL Creatinine (0.8-1.3) mg/dL Est Cr Clr Drug Dosing mL/min Estimated GFR (MDRD) ml/min Glucose (74-106) mg/dL Hemoglobin A1c 5.2 (4.5 - 6.2) % Calcium (8.5-10.1) mg/dL Phosphorus (2.6-4.7) mg/dL Magnesium (1.8-2.4) mg/dL Total Bilirubin (0.2-1.0) mg/dL AST (15-37) IU/L ALT (14-63) IU/L Alkaline Phosphatase (46-116) U/L C-Reactive Protein (0.00-0.90) mg/dL Total Protein (6.4-8.2) g/dL Albumin (3.4-5.0) g/dL Globulin (2.6-4.0) g/dL Albumin/Globulin Ratio (0.9-1.6) SARS-CoV-2 RNA ([facility]) (NEGATIVE) Blood Type Antibody Screen [facility] Results Last 24 Hours: Microbiology 03/05/20 19:33 Anaerobic Blood Culture - Final Blood - Venous - Lab Draw Med Orders - Current: Current Medications Acetaminophen (Tylenol) 650 mg PO Q4H PRN PRN Reason: Pain (Mild 1-3)/fever Albuterol/Ipratropium (Duoneb 3.0-0.5 Mg/3 Ml) 3 ml NEB Q4HRRT PRN PRN Reason: Shortness Of Breath/wheezing Enoxaparin Sodium (Lovenox) 40 mg SUBCUT Q24H [facility] Last Admin: 03/05/20 22:48 Dose: Not Given Documented by: Hydromorphone HCl (Dilaudid) 1 mg IVPUSH Q4H PRN PRN Reason: Pain Last Admin: 03/06/20 11:36 Dose: 1 mg Documented by: Lactated Ringer's (Ringers, Lactated) 1,000 mls @ 125 mls/hr IV ASDIRECTED [facility] Last Admin: 03/06/20 00:16 Dose: 125 mls/hr Documented by: Vancomycin HCl 1 gm/ Sodium (Chloride) 250 mls @ 166 mls/hr IV Q8H [facility] Last Admin: 03/06/20 10:09 Dose: 166 mls/hr Documented by: Piperacillin Sod/Tazobactam (Sod 4.5 gm/ Sodium Chloride) 100 mls @ 100 mls/hr IV Q8H [facility] Last Admin: 03/06/20 12:15 Dose: 100 mls/hr Documented by: Nicotine (Habitrol) 14 mg TRDERM DAILY [facility] Last Admin: 03/06/20 10:07 Dose: 14 mg Documented by: Ondansetron HCl (Zofran) 4 mg IVPUSH Q4H PRN PRN Reason: Nausea/Vomiting Sodium Chloride (Saline Flush) 10 ml FLUSH ASDIRECTED PRN PRN Reason: Keep Vein Open Last Admin: 03/05/20 19:37 Dose: 10 ml Documented by: Sodium Chloride (Saline Flush) 2.5 ml FLUSH ASDIRECTED PRN PRN Reason: Keep Vein Open Last Admin: 03/05/20 19:37 Dose: 2.5 ml Documented by: Vancomycin HCl (Pharmacy To Dose - Vancomycin) 1 dose .XX ASDIRECTED [facility] Discontinued Medications Hydrocodone Bitart/Acetaminophen ([place] 325-10 Mg) 1 tab PO ONETIME ONE Stop: 03/05/20 21:43 Last Admin: 03/05/20 21:47 Dose: 1 tab Documented by: Diphtheria/Tetanus/Acell Pertussis (Boostrix) 0.5 ml IM .ONCE ONE Stop: 03/05/20 19:14 Last Admin: 03/05/20 19:35 Dose: 0.5 ml Documented by: Diphtheria/Tetanus/Acell Pertussis (Adacel) Confirm Administered Dose 0.5 ml .ROUTE .STK-MED ONE Stop: 03/05/20 19:34 Last Admin: 03/05/20 21:26 Dose: Not Given Documented by: Lactated Ringer's (Ringers, Lactated) 1,000 mls @ 999 mls/hr IV .BOLUS ONE Stop: 03/05/20 19:32 Last Admin: 03/05/20 19:18 Dose: 999 mls/hr Documented by: Vancomycin HCl 1,500 mg/ (Sodium Chloride) 100 mls @ 100 mls/hr IV ONETIME ONE Stop: 03/05/20 19:31 Last Admin: 03/05/20 19:34 Dose: 100 mls/hr Documented by: Piperacillin Sod/Tazobactam (Sod 4.5 gm/ Sodium Chloride) 100 mls @ 100 mls/hr IV ONETIME ONE Stop: 03/05/20 19:31 Last Admin: 03/05/20 19:18 Dose: 100 mls/hr Documented by: Lactated Ringer's (Ringers, Lactated) 1,000 mls @ 500 mls/hr IV .BOLUS ONE Stop: 03/05/20 20:34 Last Admin: 03/05/20 19:37 Dose: 500 mls/hr Documented by: Piperacillin Sod/Tazobactam (Sod 4.5 gm/ Sodium Chloride) 100 mls @ 100 mls/hr IV Q8H [facility] Morphine Sulfate (Morphine) 4 mg IM ONETIME ONE Stop: 03/05/20 18:33 Last Admin: 03/05/20 19:16 Dose: 4 mg Documented by: Morphine Sulfate (Morphine) 2 mg IVPUSH Q4H PRN PRN Reason: Pain (severe 7-10) Stop: 03/06/20 22:13 Last Admin: 03/06/20 00:11 Dose: 2 mg Documented by: - Exam Quality Assessment: No: Supplemental Oxygen General: Alert, Oriented, Cooperative, No Acute Distress Lungs: Clear to Auscultation, Normal Respiratory Effort Cardiovascular: Regular Rate, Regular Rhythm, No Murmurs GI/Abdominal Exam: Normal Bowel Sounds, Soft, Non-Tender Extremities: No Pedal Edema, Joint Swelling, Leg Pain, Limited Range of Motion, Increased Warmth, Redness Sepsis Event Note - Evaluation Sepsis Screening Result: No Definite Risk - Focused Exam Vital Signs: Vital Signs Temp Pulse Resp BP Pulse Ox 03/06/20 12:00 36.8 C 65 14 116/69 94 L 03/06/20 07:56 36.9 C 70 18 109/55 L 95 03/06/20 04:32 37.1 C 62 16 111/62 96 - Problem List & Annotations (1) Cellulitis SNOMED Code(s): 430390719 Code(s): L03.90 - CELLULITIS, UNSPECIFIED Status: Acute Current Visit: Yes (2) Prepatellar bursitis SNOMED Code(s): 45554074 Code(s): M70.40 - PREPATELLAR BURSITIS, UNSPECIFIED KNEE Status: Acute Current Visit: Yes (3) Soft tissue infection SNOMED Code(s): 04982364 Code(s): L08.9 - LOCAL INFECTION OF THE SKIN AND SUBCUTANEOUS TISSUE, UNSP Status: Acute Current Visit: Yes - Problem List Review Problem List Initiated/Reviewed/Updated: Yes - My Orders Last 24 Hours: My Active Orders 03/05/20 22:08 Ambulate [RC] ASDIRECTED Oxygen Therapy [RC] PRN VTE/DVT Education [RC] PER UNIT ROUTINE Vital Signs [RC] Q4H Acetaminophen [TylenoL] 650 mg PO Q4H PRN Albuterol/Ipratropium [DuoNeb 3.0-0.5 MG/3 ML] 3 ml NEB Q4HRRT PRN Ondansetron [Zofran] 4 mg IVPUSH Q4H PRN Resuscitation Status Routine 03/05/20 22:10 Sequential Compression Device [OM.PC] Per Unit Routine 03/05/20 22:13 Antiembolic Devices [RC] PER UNIT ROUTINE 03/05/20 22:15 Enoxaparin [Lovenox] 40 mg SUBCUT Q24H Lactated Ringers [Ringers, Lactated] 1,000 ml IV ASDIRECTED 03/05/20 22:26 RT Aerosol Therapy [RC] ASDIRECTED 03/05/20 22:36 CULTURE WOUND [RM] Stat 03/05/20 22:45 Pharmacy to Dose - Vancomycin 1 dose .XX ASDIRECTED 03/06/20 01:46 HYDROmorphone [Dilaudid] 1 mg IVPUSH Q4H PRN 03/06/20 02:00 Nicotine [Habitrol] 14 mg TRDERM DAILY 03/06/20 03:00 Vancomycin [Vancocin] 1 gm Sodium Chloride 0.9% [Normal Saline (AdvBag)] 250 ml IV Q8H 03/06/20 04:00 Piperacillin/Tazobactam [Piperacil-Tazobact] 4.5 gm Sodium Chloride 0.9% [Normal Saline] 100 ml IV Q8H 03/06/20 Breakfast Regular Diet [DIET] - Plan Plan:: 29 y/o M admitted for cellulitis of his right leg sec to wound CXR showed soft tissue selling, no air or abscess, no fluid collection, No fever, patient doesn't look toxic Pain feels much better, redness and pressure/pain has started to improve per patient cont board spectrum antibiotics f/u on blood cultures send wound cultures check HbA1c Dilaudid for pain If pain gets worse will obtain CT of the knee
[2020-03-06] MEDS: Enoxaparin 40 MG/0.4 ML Syringe SUBCUT SCH ×2 (21:58→22:03)
[2020-03-07] MEDS: HYDROmorphone 1 MG/ML Syringe IVPUSH PRN ×5 (00:04→22:39)
[2020-03-07] MEDS: Lactated Ringers 1,000 ML IV SCH ×2 (00:04→13:53)
[2020-03-07 02:33] LABS: BLOOD UREA NITROGEN,BUN 7 mg/dL (7.0-18.0); CARBON DIOXIDE,CO2 29.4 mmol/L (21.0-32.0); CHLORIDE,CL 108 mmol/L (98-107); GLUCOSE RANDOM 108 mg/dL (74-106); POTASSIUM,K 3.9 mmol/L (3.5-5.1); SODIUM,NA 142 mmol/L (136-148)
[2020-03-07] MEDS: Piperacillin/Tazobactam 4.5 GM in Sodium Chloride 0.9% 100 ML IV SCH ×3 (04:52→21:13)
[2020-03-07] MEDS: Nicotine 14 MG/24 Hr Patch TRDERM SCH (10:00)
--- NOTE | 2020-03-07 12:01 | PCM.PN ---
- General Info Date of Service: 03/07/20 Admission Dx/Problem (Free Text): Admission Diagnosis/Problem Admission Diagnosis/Problem Cellulitis Subjective Update: Reports having continued knee pain. Continues to be able to flex and extend but having some pain above the kneecap. No drainage. Reports redness is increased slightly. No fevers or chills and is overall feeling somewhat better. - Review of Systems General: Reports: No Symptoms. Denies: Fever, Weakness, Fatigue, Malaise HEENT: Reports: No Symptoms. Denies: Headaches, Visual Changes Pulmonary: Reports: No Symptoms. Denies: Shortness of Breath Cardiovascular: Reports: No Symptoms. Denies: Chest Pain Gastrointestinal: Reports: No Symptoms. Denies: Abdominal Pain, Nausea, Vomiting Musculoskeletal: Reports: Leg Pain (Right thigh and knee) Neurological: Reports: No Symptoms Psychiatric: Reports: No Symptoms - Patient Data Vitals - Most Recent: Last Vital Signs Temp 96.0 F L 03/07/20 11:24 Pulse 62 03/07/20 11:24 Resp 22 H 03/07/20 11:24 BP 103/52 L 03/07/20 11:24 Pulse Ox 95 03/07/20 11:24 Weight - Most Recent: 70.76 kg I&O - Last 24 Hours: Intake & Output 03/06/20 03/07/20 03/07/20 22:59 06:59 14:59 Intake Total 0288 778 8647 Output Total 1800 1500 Balance -470 -750 1450 Lab Results Last 24 Hours: Laboratory Results - last 24 hr 03/07/20 03/07/20 03/07/20 Range/Units 02:00 02:00 02:00 WBC 8.65 (4.0-11.0) K/uL RBC 4.23 L (4.50-5.90) M/uL Hgb 12.8 L (13.0-17.0) g/dL Hct 39.3 (38.0-50.0) % MCV 92.9 (80.0-98.0) fL MCH 30.3 (27.0-32.0) pg MCHC 32.6 (31.0-37.0) g/dL RDW Std Deviation 42.3 (28.0-62.0) fl RDW Coeff of Juan 12 (11.0-15.0) % Plt Count 198 (150-400) K/uL MPV 11.00 (7.40-12.00) fL Neut % (Auto) 51.4 (48.0-80.0) % Lymph % (Auto) 36.5 (16.0-40.0) % [place] % (Auto) 8.6 (0.0-15.0) % Eos % (Auto) 3.0 (0.0-7.0) % Baso % (Auto) 0.5 (0.0-1.5) % Neut # (Auto) 4.5 (1.4-5.7) K/uL Lymph # (Auto) 3.2 H (0.6-2.4) K/uL [place] # (Auto) 0.7 (0.0-0.8) K/uL Eos # (Auto) 0.3 (0.0-0.7) K/uL Baso # (Auto) 0.0 (0.0-0.1) K/uL Nucleated RBC % 0.0 /100WBC Nucleated RBCs # 0 K/uL Sodium 142 (136-148) mmol/L Potassium 3.9 (3.5-5.1) mmol/L Chloride 108 H (98-107) mmol/L Carbon Dioxide 29.4 (21.0-32.0) mmol/L BUN 7 (7.0-18.0) mg/dL Creatinine 0.8 (0.8-1.3) mg/dL Est Cr Clr Drug Dosing 133.90 mL/min Estimated GFR (MDRD) > 60.0 ml/min Glucose 108 H (74-106) mg/dL Calcium 8.3 L (8.5-10.1) mg/dL Phosphorus 4.4 (2.6-4.7) mg/dL Magnesium 1.8 (1.8-2.4) mg/dL Vancomycin Trough 8.1 (5.0-10.0) ug/mL [facility] Results Last 24 Hours: Microbiology 03/05/20 19:33 Aerobic Blood Culture - Preliminary Blood - Venous - Lab Draw NO GROWTH AFTER 1 DAY Anaerobic Blood Culture - Final 03/05/20 19:23 Aerobic Blood Culture - Preliminary Blood - Venous NO GROWTH AFTER 1 DAY Anaerobic Blood Culture - Preliminary NO GROWTH AFTER 1 DAY Med Orders - Current: Current Medications Acetaminophen (Tylenol) 650 mg PO Q4H PRN PRN Reason: Pain (Mild 1-3)/fever Albuterol/Ipratropium (Duoneb 3.0-0.5 Mg/3 Ml) 3 ml NEB Q4HRRT PRN PRN Reason: Shortness Of Breath/wheezing Enoxaparin Sodium (Lovenox) 40 mg SUBCUT Q24H [facility] Last Admin: 03/06/20 22:03 Dose: Not Given Documented by: Hydromorphone HCl (Dilaudid) 1 mg IVPUSH Q4H PRN PRN Reason: Pain Last Admin: 03/07/20 10:00 Dose: 1 mg Documented by: Lactated Ringer's (Ringers, Lactated) 1,000 mls @ 125 mls/hr IV ASDIRECTED [facility] Last Admin: 03/07/20 00:04 Dose: 125 mls/hr Documented by: Piperacillin Sod/Tazobactam (Sod 4.5 gm/ Sodium Chloride) 100 mls @ 100 mls/hr IV Q8H [facility] Last Admin: 03/07/20 04:52 Dose: 100 mls/hr Documented by: Vancomycin HCl 1.25 gm/ Sodium (Chloride) 250 mls @ 166.667 mls/hr IV Q8H [facility] Last Admin: 03/07/20 10:15 Dose: 166.667 mls/hr Documented by: Nicotine (Habitrol) 14 mg TRDERM DAILY [facility] Last Admin: 03/07/20 10:00 Dose: 14 mg Documented by: Ondansetron HCl (Zofran) 4 mg IVPUSH Q4H PRN PRN Reason: Nausea/Vomiting Oxycodone HCl (Oxycodone) 5 mg PO Q4H PRN PRN Reason: Pain Sodium Chloride (Saline Flush) 10 ml FLUSH ASDIRECTED PRN PRN Reason: Keep Vein Open Last Admin: 03/05/20 19:37 Dose: 10 ml Documented by: Sodium Chloride (Saline Flush) 2.5 ml FLUSH ASDIRECTED PRN PRN Reason: Keep Vein Open Last Admin: 03/05/20 19:37 Dose: 2.5 ml Documented by: Vancomycin HCl (Pharmacy To Dose - Vancomycin) 1 dose .XX ASDIRECTED [facility] Discontinued Medications Hydrocodone Bitart/Acetaminophen ([place] 325-10 Mg) 1 tab PO ONETIME ONE Stop: 03/05/20 21:43 Last Admin: 03/05/20 21:47 Dose: 1 tab Documented by: Diphtheria/Tetanus/Acell Pertussis (Boostrix) 0.5 ml IM .ONCE ONE Stop: 03/05/20 19:14 Last Admin: 03/05/20 19:35 Dose: 0.5 ml Documented by: Diphtheria/Tetanus/Acell Pertussis (Adacel) Confirm Administered Dose 0.5 ml .ROUTE .STK-MED ONE Stop: 03/05/20 19:34 Last Admin: 03/05/20 21:26 Dose: Not Given Documented by: Lactated Ringer's (Ringers, Lactated) 1,000 mls @ 999 mls/hr IV .BOLUS ONE Stop: 03/05/20 19:32 Last Admin: 03/05/20 19:18 Dose: 999 mls/hr Documented by: Vancomycin HCl 1,500 mg/ (Sodium Chloride) 100 mls @ 100 mls/hr IV ONETIME ONE Stop: 03/05/20 19:31 Last Admin: 03/05/20 19:34 Dose: 100 mls/hr Documented by: Piperacillin Sod/Tazobactam (Sod 4.5 gm/ Sodium Chloride) 100 mls @ 100 mls/hr IV ONETIME ONE Stop: 03/05/20 19:31 Last Admin: 03/05/20 19:18 Dose: 100 mls/hr Documented by: Lactated Ringer's (Ringers, Lactated) 1,000 mls @ 500 mls/hr IV .BOLUS ONE Stop: 03/05/20 20:34 Last Admin: 03/05/20 19:37 Dose: 500 mls/hr Documented by: Piperacillin Sod/Tazobactam (Sod 4.5 gm/ Sodium Chloride) 100 mls @ 100 mls/hr IV Q8H [facility] Vancomycin HCl 1 gm/ Sodium (Chloride) 250 mls @ 166 mls/hr IV Q8H [facility] Last Admin: 03/06/20 18:35 Dose: 166 mls/hr Documented by: Morphine Sulfate (Morphine) 4 mg IM ONETIME ONE Stop: 03/05/20 18:33 Last Admin: 03/05/20 19:16 Dose: 4 mg Documented by: Morphine Sulfate (Morphine) 2 mg IVPUSH Q4H PRN PRN Reason: Pain (severe 7-10) Stop: 03/06/20 22:13 Last Admin: 03/06/20 00:11 Dose: 2 mg Documented by: - Exam General: Alert, Oriented, Cooperative, No Acute Distress Lungs: Clear to Auscultation, Normal Respiratory Effort Cardiovascular: Regular Rate, Regular Rhythm GI/Abdominal Exam: Normal Bowel Sounds, Soft, Non-Tender Extremities: Normal Range of Motion, No Pedal Edema, Other (Erythema noted just proximal to right patella. Large abrasion and wound noted approximately 2 cm transverse posterior thigh. Denies drainage. No overt fluctuance noted. Mild induration surrounding wound. Erythema slightly outside of marked lines. No joint effusion noted on assessment.) Neurological: No New Focal Deficit Psy/Mental Status: Alert, Normal Affect, Normal Mood Sepsis Event Note - Evaluation Sepsis Screening Result: No Definite Risk - Focused Exam Vital Signs: Vital Signs Temp Pulse Resp BP Pulse Ox 03/07/20 11:24 96.0 F L 62 22 H 103/52 L 95 03/07/20 07:35 98.3 F 60 14 110/62 94 L 03/07/20 04:00 95.8 F L 64 16 127/73 92 L - Problem List & Annotations (1) Cellulitis SNOMED Code(s): 598352276 Code(s): L03.90 - CELLULITIS, UNSPECIFIED Status: Acute Current Visit: Yes (2) Soft tissue infection SNOMED Code(s): 02720938 Code(s): L08.9 - LOCAL INFECTION OF THE SKIN AND SUBCUTANEOUS TISSUE, UNSP Status: Acute Current Visit: Yes - Problem List Review Problem List Initiated/Reviewed/Updated: Yes - My Orders Last 24 Hours: My Active Orders 03/07/20 08:21 oxyCODONE 5 mg PO Q4H PRN 03/07/20 10:55 Knee w Cont Rt [CT] Urgent - Plan Plan:: 29 y/o M admitted for cellulitis of his right leg sec to wound 1. Cellulitis to right lower extremity -X-ray of right knee showed mild soft tissue swelling but no air or abscess, no fluid collection, -Appears nontoxic blood cultures negative -Leukocytosis is improving -Continue vancomycin and Zosyn -Wound culture pending - Pain is slightly better, redness has extended slightly beyond marking from yesterday -We will obtain CT of right knee with contrast to evaluate for involvement of joint and/or abscess. -Oxycodone as needed pain with Dilaudid for breakthrough VTE prophylaxis: Lovenox CODE STATUS: Full code Dispo: 1 to 2 days possibly discharge in a.m. pending CT results.
[2020-03-07] MEDS: oxyCODONE 5 MG Tab PO PRN ×2 (18:13→22:38)
--- NOTE | 2020-03-07 18:35 | CT ---
Indication: Cellulitis. Technique: CT right knee with 85 cc Isovue 370 IV contrast. Comparison: Knee x-ray March 05, 2020. Findings: There is a superficial laceration superior to the patella. There is a moderate amount of generalized subcutaneous edema. No deeper inflammation and no fluid collection to suggest abscess. No joint effusion. Bones are unremarkable. Impression: Small skin laceration superior to the patella with generalized anterior subcutaneous edema/inflammation. No sign of abscess. Remainder of the exam is unremarkable. Please note that all CT scans at this facility use dose modulation, iterative reconstruction, and/or weight-based dosing when appropriate to reduce radiation dose to as low as reasonably achievable. Dictated by Derek Chavez MD @ Mar 07 2020 6:27PM Signed by Dr. Derek Chavez @ Mar 07 2020 6:34PM
[2020-03-07] MEDS ORDERED: Iopamidol 755 MG/ML 500 ML Multipack Bottle IVPUSH STA (18:41)
[2020-03-07] MEDS: Enoxaparin 40 MG/0.4 ML Syringe SUBCUT SCH (22:38)
[2020-03-08] MEDS: Lactated Ringers 1,000 ML IV SCH (02:45)
[2020-03-08] MEDS: oxyCODONE 5 MG Tab PO PRN (02:46)
[2020-03-08] MEDS: HYDROmorphone 1 MG/ML Syringe IVPUSH PRN ×2 (02:47→08:20)
[2020-03-08] MEDS: Piperacillin/Tazobactam 4.5 GM in Sodium Chloride 0.9% 100 ML IV SCH (04:28)
[2020-03-08 04:37] VITALS: PULSE 52
[2020-03-08 06:09] LABS: BLOOD UREA NITROGEN,BUN 9 mg/dL (7.0-18.0); CARBON DIOXIDE,CO2 29.1 mmol/L (21.0-32.0); CHLORIDE,CL 108 mmol/L (98-107); GLUCOSE RANDOM 98 mg/dL (74-106); SODIUM,NA 141 mmol/L (136-148)
[2020-03-08 07:17] VITALS: BP 101/59
[2020-03-08] MEDS: Nicotine 14 MG/24 Hr Patch TRDERM SCH (08:13)
--- NOTE | 2020-03-08 10:40 | PCM.DCSUM1 ---
Discharge Summary - Hospital Course Brief History: Patient is a 29-year-old man without any significant past medical history who comes to the emergency department with a chief complaint of a right knee injury. According to him, approximately 4 days ago he accidentally cut the top part of his right knee with a box car loader while he was trying to cut a rope too close to his knee. He states that it was deep and went into the muscle, he put some "glue" on it and Neosporin and a bandaged it, . He states that at that time he was able to move his knee and was able to ambulate on it. He states that since that time he took amoxicillin that was at his house approximately 10 tabs , 500 mg, he took it without prescription, and eventually ran out of it, he opened the dressing today to "dry the wound" and pressed it to get the serous fluid out, states he saw some "bubbling air" coming out as well. Since then he pain and swelling has gotten worse, redness all over his knee that spread over his knee within 3 to 4 hours and now is unable to bear weight on his right knee and that he is experiencing a significant amount of pain. CXR knee was done in ER, showed anterior soft tissue swelling, no air, abscess or osteomyelitis. Patients lactate was elevated, received IV fluids and IV antibiotics, f/u lactate resolved, and was admitted for father management. Diagnosis: Stroke: No - Discharge Data Discharge Date: 03/08/20 Discharge Disposition: Home, Self-Care 01 Condition: Stable - Referral to Home Health Primary Care Physician: PCP None - Discharge Diagnosis/Problem(s) (1) Cellulitis SNOMED Code(s): 643152672 ICD Code: L03.90 - CELLULITIS, UNSPECIFIED Status: Acute (2) Soft tissue infection SNOMED Code(s): 41245331 ICD Code: L08.9 - LOCAL INFECTION OF THE SKIN AND SUBCUTANEOUS TISSUE, UNSP Status: Acute - Patient Summary/Data Hospital Course: Admission diagnoses Right leg cellulitis Discharge diagnoses Right leg cellulitis Wily was admitted secondary to right leg cellulitis which started after he accidentally cut himself at work with a box car loader. He reports that at home he was protecting it with Neosporin and a Band-Aid noticed some swelling and redness so he started taking some amoxicillin that he had at home that was previously prescribed for something else. On arrival he was noted that he had leukocytosis and erythema around the knee. X-ray revealed no involvement of knee joint and no subcutaneous air. He was started on vancomycin and Zosyn. Blood cultures obtained which were negative. He continued to improve daily he was treated with medications for pain. Yesterday he felt like the redness spread slightly and had continued pain though the movement of his knee continued on altered. CT of the right knee was obtained with contrast. Abscess was ruled out and no joint involvement noted mild edema noted just superior to the patella which is the location of laceration was noted. Today he is feeling much improved pain is much better he is able to move his knee significantly without any pain. He is eager for discharge home which is appropriate. He will be discharged home today with Keflex 500 mg 4 times daily for 10 more days he is to return to the ER if fevers chills increased redness or drainage from that site is noted. He was encouraged not to soak or take any baths until it is completely healed wash daily with soap and water gently. He is supposed to keep this covered while at work to protect this from irritation. He is to return to the ER concerns should arise follow PCP in 1 week. - Patient Instructions Diet: Regular Diet as Tolerated Activity: As Tolerated, No Strenuous Activities Showering/Bathing: May Shower, No Tub Bathing/Swimming Notify Provider of: Fever, Increased Pain, Swelling and Redness, Drainage, Nausea and/or Vomiting Other/Special Instructions: Motrin and Tylenol should be sufficient for pain control - Discharge Plan *PRESCRIPTION DRUG MONITORING PROGRAM REVIEWED*: Not Applicable *COPY OF PRESCRIPTION DRUG MONITORING REPORT IN PATIENT MARTINEZ: Not Applicable Prescriptions/Med Rec: cephALEXin [Keflex] 500 mg PO QID #40 capsule Home Medications: Home Meds Acetaminophen [Tylenol] 650 mg PO Q4H PRN tablet 03/08/20 [Rx] cephALEXin [Keflex] 500 mg PO QID #40 capsule 03/08/20 [Rx] Oxygen Therapy Mode: Room Air Patient Handouts: Cellulitis, Adult, [id number], Cephalexin tablets or capsules Referrals: Francoise Jones NP [Nurse Practitioner] - 03/14/20 3:30 pm - Discharge Summary/Plan Comment DC Time >30 min.: No - Patient Data Vitals - Most Recent: Last Vital Signs Temp 97.6 F 03/08/20 07:16 Pulse 52 L 03/08/20 07:16 Resp 14 03/08/20 07:16 BP 101/59 L 03/08/20 07:16 Pulse Ox 97 03/08/20 07:16 Weight - Most Recent: 70.76 kg I&O - Last 24 hours: Intake & Output 03/07/20 03/08/20 03/08/20 22:59 06:59 14:59 Intake Total 3196 175 3064 Balance 8804 553 3977 Lab Results - Last 24 hrs: Laboratory Results - last 24 hr 03/08/20 03/08/20 Range/Units 05:38 05:38 WBC 7.17 (4.0-11.0) K/uL RBC 4.15 L (4.50-5.90) M/uL Hgb 12.7 L (13.0-17.0) g/dL Hct 38.3 (38.0-50.0) % MCV 92.3 (80.0-98.0) fL MCH 30.6 (27.0-32.0) pg MCHC 33.2 (31.0-37.0) g/dL RDW Std Deviation 41.5 (28.0-62.0) fl RDW Coeff of Juan 12 (11.0-15.0) % Plt Count 201 (150-400) K/uL MPV 10.80 (7.40-12.00) fL Neut % (Auto) 42.8 L (48.0-80.0) % Lymph % (Auto) 44.2 H (16.0-40.0) % [place] % (Auto) 8.1 (0.0-15.0) % Eos % (Auto) 4.3 (0.0-7.0) % Baso % (Auto) 0.6 (0.0-1.5) % Neut # (Auto) 3.1 (1.4-5.7) K/uL Lymph # (Auto) 3.2 H (0.6-2.4) K/uL [place] # (Auto) 0.6 (0.0-0.8) K/uL Eos # (Auto) 0.3 (0.0-0.7) K/uL Baso # (Auto) 0.0 (0.0-0.1) K/uL Nucleated RBC % 0.0 /100WBC Nucleated RBCs # 0 K/uL Sodium 141 (136-148) mmol/L Potassium 4.0 (3.5-5.1) mmol/L Chloride 108 H (98-107) mmol/L Carbon Dioxide 29.1 (21.0-32.0) mmol/L BUN 9 (7.0-18.0) mg/dL Creatinine 0.9 (0.8-1.3) mg/dL Est Cr Clr Drug Dosing 119.03 mL/min Estimated GFR (MDRD) > 60.0 ml/min Glucose 98 (74-106) mg/dL Calcium 8.1 L (8.5-10.1) mg/dL Magnesium 1.7 L (1.8-2.4) mg/dL A[place]LAIDA Results - Last 24 hrs: Microbiology 03/05/20 19:33 Aerobic Blood Culture - Preliminary Blood - Venous - Lab Draw NO GROWTH AFTER 2 DAYS Anaerobic Blood Culture - Final 03/05/20 19:23 Aerobic Blood Culture - Preliminary Blood - Venous NO GROWTH AFTER 2 DAYS Anaerobic Blood Culture - Preliminary NO GROWTH AFTER 2 DAYS Med Orders - Current: Current Medications Acetaminophen (Tylenol) 650 mg PO Q4H PRN PRN Reason: Pain (Mild 1-3)/fever Albuterol/Ipratropium (Duoneb 3.0-0.5 Mg/3 Ml) 3 ml NEB Q4HRRT PRN PRN Reason: Shortness Of Breath/wheezing Enoxaparin Sodium (Lovenox) 40 mg SUBCUT Q24H [facility] Last Admin: 03/07/20 22:38 Dose: Not Given Documented by: Hydromorphone HCl (Dilaudid) 1 mg IVPUSH Q4H PRN PRN Reason: Pain Last Admin: 03/08/20 08:20 Dose: 1 mg Documented by: Lactated Ringer's (Ringers, Lactated) 1,000 mls @ 125 mls/hr IV ASDIRECTED [facility] Last Admin: 03/08/20 02:45 Dose: 125 mls/hr Documented by: Piperacillin Sod/Tazobactam (Sod 4.5 gm/ Sodium Chloride) 100 mls @ 100 mls/hr IV Q8H [facility] Last Admin: 03/08/20 04:28 Dose: 100 mls/hr Documented by: Vancomycin HCl 1.25 gm/ Sodium (Chloride) 250 mls @ 166.667 mls/hr IV Q8H [facility] Last Admin: 03/08/20 02:46 Dose: 166.667 mls/hr Documented by: Nicotine (Habitrol) 14 mg TRDERM DAILY [facility] Last Admin: 03/08/20 08:13 Dose: 14 mg Documented by: Ondansetron HCl (Zofran) 4 mg IVPUSH Q4H PRN PRN Reason: Nausea/Vomiting Oxycodone HCl (Oxycodone) 5 mg PO Q4H PRN PRN Reason: Pain Last Admin: 03/08/20 02:46 Dose: 5 mg Documented by: Sodium Chloride (Saline Flush) 10 ml FLUSH ASDIRECTED PRN PRN Reason: Keep Vein Open Last Admin: 03/05/20 19:37 Dose: 10 ml Documented by: Sodium Chloride (Saline Flush) 2.5 ml FLUSH ASDIRECTED PRN PRN Reason: Keep Vein Open Last Admin: 03/05/20 19:37 Dose: 2.5 ml Documented by: Vancomycin HCl (Pharmacy To Dose - Vancomycin) 1 dose .XX ASDIRECTED [facility] Discontinued Medications Hydrocodone Bitart/Acetaminophen ([place] 325-10 Mg) 1 tab PO ONETIME ONE Stop: 03/05/20 21:43 Last Admin: 03/05/20 21:47 Dose: 1 tab Documented by: Diphtheria/Tetanus/Acell Pertussis (Boostrix) 0.5 ml IM .ONCE ONE Stop: 03/05/20 19:14 Last Admin: 03/05/20 19:35 Dose: 0.5 ml Documented by: Diphtheria/Tetanus/Acell Pertussis (Adacel) Confirm Administered Dose 0.5 ml .ROUTE .STK-MED ONE Stop: 03/05/20 19:34 Last Admin: 03/05/20 21:26 Dose: Not Given Documented by: Lactated Ringer's (Ringers, Lactated) 1,000 mls @ 999 mls/hr IV .BOLUS ONE Stop: 03/05/20 19:32 Last Admin: 03/05/20 19:18 Dose: 999 mls/hr Documented by: Vancomycin HCl 1,500 mg/ (Sodium Chloride) 100 mls @ 100 mls/hr IV ONETIME ONE Stop: 03/05/20 19:31 Last Admin: 03/05/20 19:34 Dose: 100 mls/hr Documented by: Piperacillin Sod/Tazobactam (Sod 4.5 gm/ Sodium Chloride) 100 mls @ 100 mls/hr IV ONETIME ONE Stop: 03/05/20 19:31 Last Admin: 03/05/20 19:18 Dose: 100 mls/hr Documented by: Lactated Ringer's (Ringers, Lactated) 1,000 mls @ 500 mls/hr IV .BOLUS ONE Stop: 03/05/20 20:34 Last Admin: 03/05/20 19:37 Dose: 500 mls/hr Documented by: Piperacillin Sod/Tazobactam (Sod 4.5 gm/ Sodium Chloride) 100 mls @ 100 mls/hr IV Q8H [facility] Vancomycin HCl 1 gm/ Sodium (Chloride) 250 mls @ 166 mls/hr IV Q8H [facility] Last Admin: 03/06/20 18:35 Dose: 166 mls/hr Documented by: Iopamidol (Isovue Multipack-370 (76%)) 85 ml IVPUSH ONETIME STA Stop: 03/07/20 18:42 Last Admin: 03/07/20 18:42 Dose: 85 ml Documented by: Morphine Sulfate (Morphine) 4 mg IM ONETIME ONE Stop: 03/05/20 18:33 Last Admin: 03/05/20 19:16 Dose: 4 mg Documented by: Morphine Sulfate (Morphine) 2 mg IVPUSH Q4H PRN PRN Reason: Pain (severe 7-10) Stop: 03/06/20 22:13 Last Admin: 03/06/20 00:11 Dose: 2 mg Documented by:
== END 2020-03-08 11:50 | disposition home or self-care (01) ==
LOC: MW.ED 17:17 → MW.MS 21:49
PROVIDERS: ADMIT Student in an Organized Health Care Education/Training Program; ATTEND Student in an Organized Health Care Education/Training Program
DX: L03.115 Cellulitis of right lower limb (principal); L08.9 Local infection of the skin and subcutaneous tissue, unspecified; F17.210 Nicotine dependence, cigarettes, uncomplicated; M70.40 Prepatellar bursitis, unspecified knee; Z20.828 Contact with and (suspected) exposure to other viral communicable diseases; Z23 Encounter for immunization
CPT/HCPCS: 36415; 73562; 73701; 80048; 80053; 80202; 83036; 83605; 83735; 84100; 85025; 85610; 85730; 86140; 86850; 86900; 86901; 87040; 87635; 90471; 96365; 96366; 96368; 96372; 96375; 96376; 99284; A9270; G0378; J1170; J2270; J2543; J3370; J7050; J7120; Q9967; J1650; U0002

== ENCOUNTER 2021-01-19 08:08 | Emergency (ER) | payer SELFPAY ==
[2021-01-19] MEDS ORDERED: Ibuprofen 600 MG Tab PO ONE (08:36)
[2021-01-19] MEDS ORDERED: Alum Hydrox/Mag Hydrox/Simeth 15 ML, Lidocaine 2% 5 ML PO ONE ×2 (08:38)
[2021-01-19] MEDS ORDERED: Famotidine 20 MG Tab PO ONE (08:38)
--- NOTE | 2021-01-19 08:45 | CR ---
INDICATION: Shortness of breath. TECHNIQUE: Chest 1 views. COMPARISON: 09/11/2015. FINDINGS: Cardiovascular and mediastinum: Heart size and vasculature are normal in caliber and appearance. Lungs and pleural spaces: Lungs are clear. No sign of infiltrate or mass. No sign of pleural effusion. No pneumothorax. Bones and soft tissues: No significant findings. IMPRESSION: No acute findings and no significant changes from the prior exam. Dictated by Derek Chavez MD @ 01/19/2021 8:44:00 AM (Electronically Signed)
--- NOTE | 2021-01-19 09:13 | PCM.EKG ---
#1 Interpretation EKG Date: 01/19/21 Time: 08:08 Rhythm: NSR Rate (Beats/Min): 82 [place]: Normal P-Wave: Present QRS: Normal ST-T: Normal QT: Normal Comparison: No Change (06/21/17) EKG Interpretation Comments: Sinus Rhythm
[2021-01-19] MEDS ORDERED: diphenhydrAMINE 50 MG/ML SDV IVPUSH ONE (09:40)
[2021-01-19] MEDS ORDERED: Haloperidol Lactate 5 MG/ML SDV IM ONE (09:40)
[2021-01-19 09:59] LABS: BLOOD UREA NITROGEN,BUN 10 mg/dL (7.0-18.0); CARBON DIOXIDE,CO2 25.6 mmol/L (21.0-32.0); CHLORIDE,CL 102 mmol/L (98-107); GLUCOSE RANDOM 108 mg/dL (74-106); LIPASE 81 U/L (73-393); POTASSIUM,K 3.8 mmol/L (3.5-5.1); SODIUM,NA 141 mmol/L (136-148)
[2021-01-19] MEDS ORDERED: Magnesium Oxide 400 MG Tab PO ONE (10:09)
--- NOTE | 2021-01-19 10:56 | CT ---
INDICATION: Chest pain. Rule out pulmonary embolism. TECHNIQUE: Volumetric helical scanning of the thorax was performed during infusion of 75 cc of Isovue 370 contrast material IV, timing optimized for pulmonary arterial opacification. Coronal and sagittal reconstructions were obtained. COMPARISON: Today`s chest x-ray. FINDINGS: The images are of acceptable quality and demonstrate uniform vascular enhancement within the pulmonary arteries. No pulmonary arterial filling defect is identified. The heart size is normal. The lungs, airways and pleural spaces are clear. There is no mediastinal or hilar lymphadenopathy. Images of the upper abdomen are unremarkable. IMPRESSION: Negative chest CT. No evidence of pulmonary embolism or pneumonia. Please note that all CT scans at this facility use dose modulation, iterative reconstruction, and/or weight-based dosing when appropriate to reduce radiation dose to as low as reasonably achievable. Dictated by Олег Epps MD @ 01/19/2021 10:54:43 AM (Electronically Signed)
--- NOTE | 2021-01-19 11:11 | EDM.PDOC ---
ED HPI GENERAL MEDICAL PROBLEM - General Chief Complaint: Chest Pain Stated Complaint: CHEST PAIN/ SOB Time Seen by Provider: 01/19/21 08:30 - History of Present Illness INITIAL COMMENTS - FREE TEXT/NARRATIVE: CHIEF COMPLAINT(S): Chest pain HISTORY OF PRESENT ILLNESS: This is a 30-year-old man with a past medical history of marijuana use disorder, tobacco use disorder, kratom use disorder who presents to the emergency department with chest pain. The patient states that this morning started to experience chest pain which he rates as 10 out of 10 located and the right side of his chest which he describes as sharp. He states that the pain is worse with deep breathing. He denies any diaphoresis, nausea or vomiting. He states that he does feel mildly short of breath. He states that he is exacerbated by breathing. He denies any relieving factors. She denies any recent travel, recent surgery, prior history of DVT or PE. He denies any lower extremity edema. He denies any family history of CAD or sudden onset at young age. She denies any personal history of CAD. He denies any cough, runny nose, congestion. He denies any injury to the chest wall. REVIEW OF SYSTEMS: Constitutional: Denies fever, chills. Eyes: Denies eye pain Ears, Nose, Mouth, & Throat: Denies earache Cardiovascular: Positive for pleuritic chest pain Respiratory: Denies shortness of breath Gastrointestinal: Denies Nausea, vomiting, diarrhea, hematochezia. Genitourinary: Denies hematuria Skin:Denies a rash MSK: Denies joint pain Neurological: Denies blurred vision Psychiatric: Denies depression PAST MEDICAL HISTORY: As per history of present illness and as reviewed below otherwise noncontributory. SURGICAL HISTORY: As per history of present illness and as reviewed below otherwise noncontributory. SOCIAL HISTORY: As per history of present illness and as reviewed below otherwise noncontributory. FAMILY HISTORY: As per history of present illness and as reviewed below otherwise noncontributory. EXAMINATION OF ORGAN SYSTEMS/BODY AREAS: Constitutional: Blood pressure was 123/68, heart rate 87, respiratory rate 18 with an oxygen saturation of 96% on room air. Temperature 36.9 General: Anxious appearing man who is in no acute distress Psychiatric: Appropriate mood and affect. Eyes: No scleral icterus or conjunctival erythema ENMT: Moist mucous membranes. No pharyngeal erythema Cardiovascular: Regular, rate, and rhythm. No gallops, murmurs, or rubs. Bilateral upper extremity pulses symmetric and intact. No peripheral edema. No JVD. Respiratory: Lungs clear to auscultation bilaterally. No wheezes, rales, or rhonchi. Gastrointestinal: Soft, non-tender, non-distended. Normoactive bowel sounds Genitourinary: No suprapubic tenderness Musculoskeletal: Normal range of motion. Skin: No lesions or abrasions. Neurological: Alert, GCS 15 MEDICAL DECISION MAKING AND COURSE IN THE ED WITH INTERPRETATION/REVIEW OF DIAGNOSTIC STUDIES: This is a 30-year-old man with a past medical history of marijuana use disorder, tobacco use disorder, kratom use disorder who presents to the emergency department with acute onset pleuritic chest pain with stable vital signs. At this time the patient is PERC negative therefore he is low risk for pulmonary embolism. He has no significant family history and his symptoms are atypical. At this time we did obtain a EKG which was unremarkable. We will obtain a chest x-ray to evaluate for any abnormality. We will provide the patient with ibuprofen for pain relief and reevaluate after chest x-ray. PERC Rule Age (>/=50): No (0) HR (>/=100): No (0) SaO2 on RA <95%: No (0) Unilateral Leg Swelling: No (0) Hemoptysis: No (0) Surgery/Trauma in last month requiring general anesthesia: No (0) Prior PE or DVT: : No (0) Hormone Use: No (0) PERC negative Since patient is PERC negative and pre-test probability <15%, there is no need for more intensive workup, <2% chance of PE Heart Score History: Slightly or Non-Suspicious (0) ECG: Normal (0) Age: <45 (0) Risk Factors: No known risk factors (0) Initial Troponin: </= normal limit (0) Total Score: 0 The radiological images were viewed by myself along with reading the report from the radiologist. Chest x-ray does not reveal any acute cardiopulmonary process. On reevaluation the patient stated that he continued to have severe chest pain that is worse with deep breathing. On my reevaluation with cardiac monitoring the patient was sinus rhythm and pulse oximetry with good waveform was 98% on room air. At this time given his continued chest pain will obtain CBC, CMP, lipase, Covid, influenza, troponin and magnesium. Will obtain a CT angiogram of the chest even though the patient is low risk. I did discuss with him that I do not believe we would find anything for any of the studies however we will provide him with Haldol and Benadryl for pain and nausea relief. Given the possibility of gastritis versus peptic ulcer disease we will provide the patient with a GI cocktail and famotidine. He was amenable to this plan. Laboratory: CBC reveals a leukocytosis of 14.38 otherwise unremarkable. CMP is unremarkable. Magnesium is low at 1.7. Lipase is normal. The radiological images were viewed by myself along with reading the report from the radiologist. CT angiogram of the chest does not reveal any acute pulmonary embolism or abnormality. On reevaluation I did discuss symptomatic treatment with the patient at home. The patient refused a Covid and influenza swab. At this time I did discuss them that his symptoms could be secondary to these entities and that he needed to quarantine if he were to develop symptoms. He was amenable to discharge at this time and had no further questions DISPOSITION: The patient was discharged home in stable condition. The patient will follow up with primary care physician in 3 to 5 days CONDITION: Good PROCEDURES: Cardiac Monitoring interpretation, pulse oximetry interpretation FINAL IMPRESSION(S)/DIAGNOSES: 1. Acute chest pain Critical Care Procedure Note Authorized and performed by: David Cameron M.D. Critical Care Time: 65 minutes Due to a high probability of clinically significant, life threatening det erioration, the patient required my highest level of preparedness to intervene emergently and I personally spent this critical care time directly and personally managing the patient. This critical care time included obtaining a history, examining the patient, pulse oximetry; ordering and review of studies; arranging urgent treatment with development of a management plan; evaluation of a patients reponse to treatment; frequent assessment; and discussions with other providers. This critical care time was performed to assess and manage the high probability of imminent, life threatening deterioration that could result in multiorgan failure. It was exclusive of separate billable procedures and treating other patients. Please see MDM section and rest of the note for further information on patient assessment and treatment. Please see MDM section and rest of the note for further information on patient assessment and treatment. David Cameron M.D. chest Pain Score (Numeric/FACES): 9 - Related Data Allergies Allergy/AdvReac Type Severity Reaction Status Date / Time No Known Allergies Allergy Verified 01/19/21 08:15 Home Meds: Home Meds . [No Known Home Meds] 01/19/21 [History] Past Medical History HEENT History: Reports: None Cardiovascular History: Reports: None Respiratory History: Reports: Other (See Below) Other Respiratory History: Pleurisy and lung infections during childhood Gastrointestinal History: Reports: None Genitourinary History: Reports: None Musculoskeletal History: Reports: None Neurological History: Reports: Brain Injury Psychiatric History: Reports: None Endocrine/Metabolic History: Reports: None Hematologic History: Reports: None Immunologic History: Reports: None Oncologic (Cancer) History: Reports: None Dermatologic History: Reports: None - Infectious Disease History Infectious Disease History: Reports: Chicken Pox - Past Surgical History Head Surgeries/Procedures: Reports: None HEENT Surgical History: Reports: None Cardiovascular Surgical History: Reports: None Respiratory Surgical History: Reports: None GI Surgical History: Reports: None Male Surgical History: Reports: None Endocrine Surgical History: Reports: None Neurological Surgical History: Reports: None Musculoskeletal Surgical History: Reports: None Oncologic Surgical History: Reports: None Dermatological Surgical History: Reports: None Social & Family History - Family History Family Medical History: No Pertinent Family History - Tobacco Use Tobacco Use Status *Q: Current Every Day Tobacco User Years of Tobacco use: 16 Packs/Tins Daily: 1 - Caffeine Use Caffeine Use: Reports: None - Recreational Drug Use Recreational Drug Use: Yes Recreational Drug Type: Reports: Marijuana/Hashish Recreational Drug Use Frequency: Daily ED ROS GENERAL - Review of Systems Review Of Systems: See Below ED EXAM, GENERAL - Physical Exam Exam: See Below Course - Vital Signs Last Recorded V/S: Last Vital Signs Temp 36.9 C 01/19/21 08:15 Pulse 64 01/19/21 11:54 Resp 17 01/19/21 11:54 BP 133/74 01/19/21 11:54 Pulse Ox 98 01/19/21 11:54 - Orders/Labs/Meds Labs: Laboratory Tests 01/19/21 01/19/21 Range/Units 08:20 08:20 WBC 14.38 H (4.0-11.0) K/uL RBC 4.82 (4.50-5.90) M/uL Hgb 15.0 (13.0-17.0) g/dL Hct 43.1 (38.0-50.0) % MCV 89.4 (80.0-98.0) fL MCH 31.1 (27.0-32.0) pg MCHC 34.8 (31.0-37.0) g/dL RDW Std Deviation 40.4 (28.0-62.0) fl RDW Coeff of Juan 12 (11.0-15.0) % Plt Count 255 (150-400) K/uL MPV 11.90 (7.40-12.00) fL Neut % (Auto) 74.5 (48.0-80.0) % Lymph % (Auto) 16.2 (16.0-40.0) % Anson % (Auto) 8.3 (0.0-15.0) % Eos % (Auto) 0.8 (0.0-7.0) % Baso % (Auto) 0.2 (0.0-1.5) % Neut # (Auto) 10.7 H (1.4-5.7) K/uL Lymph # (Auto) 2.3 (0.6-2.4) K/uL Anson # (Auto) 1.2 H (0.0-0.8) K/uL Eos # (Auto) 0.1 (0.0-0.7) K/uL Baso # (Auto) 0.0 (0.0-0.1) K/uL Nucleated RBC % 0.0 /100WBC Nucleated RBCs # 0 K/uL Sodium 141 (136-148) mmol/L Potassium 3.8 (3.5-5.1) mmol/L Chloride 102 (98-107) mmol/L Carbon Dioxide 25.6 (21.0-32.0) mmol/L BUN 10 (7.0-18.0) mg/dL Creatinine 0.9 (0.8-1.3) mg/dL Est Cr Clr Drug Dosing 119.45 mL/min Estimated GFR (MDRD) > 60.0 ml/min Glucose 108 H (74-106) mg/dL Calcium 8.5 (8.5-10.1) mg/dL Magnesium 1.7 L (1.8-2.4) mg/dL Total Bilirubin 0.4 (0.2-1.0) mg/dL AST 15 (15-37) IU/L ALT 17 (14-63) IU/L Alkaline Phosphatase 86 (46-116) U/L Troponin I < 0.050 (0.000-0.056) ng/mL Total Protein 7.1 (6.4-8.2) g/dL Albumin 3.9 (3.4-5.0) g/dL Globulin 3.2 (2.6-4.0) g/dL Albumin/Globulin Ratio 1.2 (0.9-1.6) Lipase 81 (73-393) U/L Meds: Medications Discontinued Medications Generic Name Dose Route Start Last Admin Trade Name Freq PRN Reason Stop Dose Admin Al Hydroxide/Mg Hydroxide 15 0 ml 01/19/21 08:38 01/19/21 09:05 ml/ Lidocaine HCl 5 ml PO 01/19/21 08:39 20 each ONETIME ONE Administration Diphenhydramine HCl 25 mg 01/19/21 09:40 01/19/21 09:55 Diphenhydramine 50 Mg/Ml Sdv IVPUSH 01/19/21 09:41 25 mg ONETIME ONE Administration Famotidine 20 mg 01/19/21 08:38 01/19/21 09:05 Famotidine 20 Mg Tab PO 01/19/21 08:39 20 mg ONETIME ONE Administration Haloperidol Lactate 2.5 mg 01/19/21 09:40 01/19/21 09:55 Haloperidol Lactate 5 Mg/Ml Sdv IM 01/19/21 09:41 2.5 mg ONETIME ONE Administration Ibuprofen 600 mg 01/19/21 08:36 01/19/21 09:04 Ibuprofen 600 Mg Tab PO 01/19/21 08:37 600 mg ONETIME ONE Administration Iopamidol 100 ml 01/19/21 12:07 01/19/21 12:08 Iopamidol 755 Mg/Ml 500 Ml Multipack Bottle IVPUSH 01/19/21 12:08 100 ml ONETIME ONE Administration Magnesium Oxide 800 mg 01/19/21 10:09 01/19/21 11:00 Magnesium Oxide 400 Mg Tab PO 01/19/21 10:10 800 mg ONETIME ONE Administration Departure - Departure Time of Disposition: 11:07 Disposition: Home, Self-Care 01 Condition: Fair Clinical Impression: Chest pain - Discharge Information *PRESCRIPTION DRUG MONITORING PROGRAM REVIEWED*: No *COPY OF PRESCRIPTION DRUG MONITORING REPORT IN PATIENT MARTINEZ: No Instructions: Nonspecific Chest Pain, Adult, [id number], Pleurisy, [id number] Referrals: PCP,None [Primary Care Provider] - Forms: ED Department Discharge Additional Instructions: You were evaluated today on an emergent basis. At this time all of your labs, chest x-ray and CT of your chest did not reveal any abnormalities to explain the symptoms you are experiencing. As discussed given that this has happened to her in the past this may be pleurisy and as discussed with you there are multiple different causes of pleurisy. At this time you do not have any evidence of heart inflammation, you do not have a pneumonia, your lung appears normal, and the enzyme we use for heart attacks is negative. You did refuse to obtain a Covid or influenza swab. This could be the reason for the pleurisy. If you have any cough, shortness of breath, fever and your symptoms do not improve I do recommend that you quarantine for 14 days. Please follow-up with primary care physician in 2 to 3 days for reevaluation. Please use the incentive spirometer as described and use Tylenol and Motrin for pain. As discussed I also recommend you stop use of kratom and marijuana and follow-up with primary care physician to discuss quitting tobacco use. [facility] [address] [place] [address] [place] [address] The patient is informed of any results of their evaluation and diagnostic workup and all questions are answered. They are given discharge instructions and return precautions. The patient is stable for discharge. The patient states they understand and agree with the plan and that they will return if their symptoms get worse or if they have any new concerns. The following information is given to patients seen in the emergency department who are being discharged to home. This information is to outline your options for follow-up care. We provide all patients seen in our emergency department with a follow-up referral. The need for follow-up, as well as the timing and circumstances, are variable depending upon the specifics of your emergency department visit. If you don't have a primary care physician on staff, we will provide you with a referral. We always advise you to contact your personal physician following an emergency department visit to inform them of the circumstance of the visit and for follow-up with them and/or the need for any referrals to a consulting specialist. The emergency department will also refer you to a specialist when appropriate. This referral assures that you have the opportunity for follow-up care with a specialist. All of these measure are taken in an effort to provide you with optimal care, which includes your follow-up. Under all circumstances we always encourage you to contact your private physician who remains a resource for coordinating your care. When calling for follow-up care, please make the office aware that this follow-up is from your recent emergency room visit. If for any reason you are refused follow-up, please contact the [facility] Emergency Department at and asked to speak to the emergency department charge nurse. Sepsis Event Note (ED) - Evaluation Sepsis Screening Result: No Definite Risk
[2021-01-19] MEDS ORDERED: Iopamidol 755 MG/ML 500 ML Multipack Bottle IVPUSH ONE (12:07)
[2021-01-19 16:07] VITALS: BP 133/74; PULSE 64
== END 2021-01-19 11:54 | disposition home or self-care (01) ==
LOC: MW.ED 08:08
DX: R07.1 Chest pain on breathing (principal); Z72.0 Tobacco use
CPT/HCPCS: 36415; 71045; 71275; 80053; 83690; 83735; 84484; 85025; 93005; 96372; 96374; 99285; A9270; J1200; J1630; Q9967

== ENCOUNTER 2023-11-10 17:54 | Emergency (ER) | payer SELFPAY ==
[2023-11-10] MEDS: Sulfamethoxazole/Trimethoprim 800-160 MG Tab PO ONE (18:39)
[2023-11-10 18:45] VITALS: BP 122/71; PULSE 71
== END 2023-11-10 18:46 | disposition home or self-care (01) ==
LOC: MW.ED 17:54
DX: N48.89 Other specified disorders of penis (principal)
CPT/HCPCS: 87070; 87075; 87205; 99283; A9270

== ENCOUNTER 2024-08-06 19:13 | Emergency (ER) | payer SELFPAY ==
[2024-08-06] MEDS: Lidocaine 1% 5 ML VIAL INJECT ONE (20:09)
[2024-08-06 20:10] VITALS: BP 108/60; PULSE 92
== END 2024-08-06 20:09 | disposition home or self-care (01) ==
LOC: MW.ED 19:13
DX: S67.197A Crushing injury of left little finger, initial encounter (principal); Z75.3 Unavailability and inaccessibility of health-care facilities; Z79.899 Other long term (current) drug therapy; W23.1XXA Caught, crushed, jammed, or pinched between stationary objects, initial encounter; Y93.89 Activity, other specified
CPT/HCPCS: 12001; 73140; 99283; J2003; 99282